=== PATIENT | male | born 1980 | race American Indian/Alaskan Native ===

== ENCOUNTER 2018-09-18 10:21 | Inpatient (IN) | payer MEDICAID, OTHER ==
[2018-09-18] MEDS ORDERED: NACL 0.9% 500 ML 500 ML IV ONE (10:35)
[2018-09-18] MEDS ORDERED: NACL 0.9% 1000 ML 1,000 ML IV ONE ×2 (10:48→13:42)
[2018-09-18] MEDS ORDERED: TYLENOL PO ONE (10:48)
--- NOTE | 2018-09-18 10:48 | Emergency Department Report ---
HPI - General Chief Complaint: Fever Time Seen by Provider: 09/18/18 10:43 - HPI HPI: 52-year-old [place] male presents to the emergency department from home using a [employer] complaint of a few days of fever, nausea/vomiting, cough, chest pain. It does not appear that the patient has taken anything for his symptoms prior to presentation. He admits to a history of HIV. He is a tobacco smoker but says he has not had any cigarettes in 5 days. He does not have a primary care physician. The patient says that he consistently travels back and between here in [facility] [place]. ED Past Medical Hx - Medications Home Medications: Home Medications Medication Instructions Recorded Confirmed Last Taken Type No Known Home Medications [No 09/18/18 09/18/18 Unknown History Reported Home Medications] ED Review of Systems ROS: Stated complaint: UNKNOWN ILLNESS Other details as noted in HPI Constitutional: chills, fever Eyes: denies: eye pain, vision change ENT: denies: ear pain, throat pain Respiratory: cough. denies: wheezing Cardiovascular: chest pain. denies: palpitations Gastrointestinal: nausea, vomiting Genitourinary: denies: dysuria, discharge Musculoskeletal: denies: back pain, arthralgia Skin: denies: rash, lesions Neurological: denies: headache Physical Exam - Physical Exam Vital Signs: Vital Signs 09/18/18 10:27 Temperature 103.1 F H Pulse Rate 136 H Respiratory 28 H Rate Blood Pressure 127/78 [Left] O2 Sat by Pulse 95 Oximetry Physical Exam: GENERAL: The patient is well-developed well-nourished. HENT: Normocephalic. Atraumatic. Patient has moist mucous membranes. EYES: Extraocular motions are intact. Pupils equal reactive to light bilaterally. NECK: Supple. Trachea is midline. CHEST/LUNGS: There is some rhonchi heard throughout the lungs. A productive Senokot. During examination. No tachypnea or accessory muscle use. There is no respiratory distress noted. HEART/CARDIOVASCULAR: Regular. There is moderate tachycardia. There is no murmur. ABDOMEN: Abdomen is soft, nontender. Patient has normal bowel sounds. There is no abdominal distention. SKIN: Skin is warm and dry. NEURO: The patient is awake, alert, and oriented. The patient is cooperative. The patient has no focal neurologic deficits. The patient has normal speech. MUSCULOSKELETAL: There is no tenderness or deformity. There is no evidence of acute injury. ED Course Vital Signs 09/18/18 10:27 Temperature 103.1 F H Pulse Rate 136 H Respiratory 28 H Rate Blood Pressure 127/78 [Left] O2 Sat by Pulse 95 Oximetry - EJ/Peripheral Line Arm R Time Out Performed: Yes Indications: nurses unable to establis Skin Cleansed in Sterile Fashion: Yes Size: 20 Dressing Placed: Tegaderm, tape Patient Tolerated Procedure: well Additional Comments: Ultrasound-guided ED Medical Decision Making - Lab Data Result diagrams: 09/18/18 10:35 09/18/18 10:35 - EKG Data -: EKG Interpreted by Me EKG shows normal: sinus rhythm, axis, intervals, QRS complexes (Carey to the septal leads), ST-T waves Rate: tachycardia (126 bpm) - EKG Data When compared to previous EKG there are: previous EKG unavailable Interpretation: other (sinus tachycardia, Q waves to the septal leads) - Radiology Data Radiology results: report reviewed, image reviewed interpreted by me: Chest x-ray does not show any acute process. There are no pleural effusions, obvious pneumonia and there is no pneumothorax. CT HEAD WITHOUT CONTRAST: HISTORY: Headache. TECHNIQUE: Sequential 2.5mm CT images. COMPARISON: none. FINDINGS: Cerebral Parenchyma: A chronic focal infarct in the right anterior basal ganglia measures 1.2 x 0.3 cm in axial plane. The remaining brain parenchyma demonstrates normal attenuation. The caraballo-white interface is well defined. Cerebellum: Within normal limits. Brainstem: Within normal limits. Ventricles: Normal. Sella: Normal. Extra-axial spaces: Normal. Basal Cisterns: Normal. Intracranial Hemorrhage: None. Midline Shift: None. Calvarium: Normal. Sinuses: Normal. Mastoid Air Cells: Normal. Visualized Orbits: Normal. IMPRESSION: No acute intracranial process. Chronic focal infarct in the right anterior basal ganglia. Transcribed By: TTR Dictated By: RAINER JOYA JR, MD Electronically Authenticated By: RAINER JOYA JR, MD Signed Date/Time: 09/18/18 1402 CTA CHEST: HISTORY: chest pain. COMPARISON: none. TECHNIQUE: Helical CT in 1.25mm intervals following IV contrast. Pulmonary embolus protocol. Sagittal and coronal reformatted images. Rotational MIP images. FINDINGS: Contrast bolus is satisfactory. No pulmonary embolus is identified. Thyroid gland: Normal. Tracheobronchial tree: Normal. Esophagus: Normal. Heart: Normal. Pericardium: Normal. Mediastinum: Normal. Lung Erwin: Patchy peribronchial infiltration is identified in both lower lobes, and to a lesser extent, the lingula and lower anterior right upper lobe. No evidence for consolidation or mass. There are a few tiny subpleural blebs in both upper lobes which could represent early paraseptal emphysematous changes. Pleural Spaces: Normal. Musculoskeletal: Normal. IMPRESSION: No evidence for pulmonary embolus. Nonspecific bilateral infiltrates concerning for an infectious process. Aspiration could be considered. Please correlate with the patient's clinical presentation. Transcribed By: TTR Dictated By: RAINER JOYA JR, MD Electronically Authenticated By: RAINER JOYA JR, MD Signed Date/Time: 09/18/18 7209 - Medical Decision Making Patient presents to the emergency department with a fever, cough, nausea and vomiting and some chest pain. EKG shows some tachycardia but otherwise does not show any signs of ST elevation CO. Chest x-ray did not show any acute process. The patient's labs are mostly unremarkable except for some mild hyponatremia and a elevated and equivocal d-dimer. The patient had a CT scan of the head secondary to the complaint of a headache but it did not show any bleed, shift, mass, acute ischemia, or any other acute process. He had a CT angiography of the chest done that does not show any signs of pulmonary embolism but has some bilateral infiltrates concerning for pneumonia. The patient was empirically treated, even prior to the CT results, with some Levaquin. With the finding of pneumonia, his fever and tachycardia, the patient is positive for sepsis. He will be admitted to the hospital for further evaluation and treatment was except for admission by the hospitalist, Dr. Soto. - Differential Diagnosis Sepsis, Pneumonia, UTI, AIDS Critical Care Time: Yes Critical care time in (mins) excluding proc time.: 35 Critical care attestation.: If time is entered above; I have spent that time in minutes in the direct care of this critically ill patient, excluding procedure time. Critical care time was spent on this patient during his initial evaluation, multiple re-evaluat ions, ordering and interpretation of labs and imaging, ordering and administration of medication. Critical Care Time: 35 minutes ED Disposition Clinical Impression: Sepsis Qualifiers: Sepsis type: sepsis due to unspecified organism Qualified Code(s): A41.9 - Sepsis, unspecified organism Pneumonia Qualifiers: Pneumonia type: due to unspecified organism Laterality: bilateral Lung location: unspecified part of lung Qualified Code(s): J18.9 - Pneumonia, unspecified organism HIV (human immunodeficiency virus infection) Qualifiers: HIV symptom status: unspecified Qualified Code(s): B20 - Human immunodeficiency virus [HIV] disease Disposition: 09 OP ADMIT IP TO THIS HOSP Is pt being admited?: Yes Condition: Serious Time of Disposition: 13:20
[2018-09-18 10:58] LABS: Basophils % (Auto) 0.1 % (0.0-1.8); Eosinophils # (Auto) 0.3 K/mm3 (0.0-0.4); Eosinophils % (Auto) 3.5 % (0.0-4.3); Hematocrit 42.9 % (35.5-45.6); Hemoglobin 14.5 gm/dl (11.8-15.2); Lymphocytes # (Auto) 0.3 K/mm3 (1.2-5.4); Lymphocytes % (Auto) 3.6 % (13.4-35.0); Mean Corpuscular HGB Conc 34 % (32-34); Mean Corpuscular Volume 76 fl (84-94); Monocytes # (Auto) 0.9 K/mm3 (0.0-0.8); Monocytes % (Auto) 11.3 % (0.0-7.3); Platelet Count 148 K/mm3 (140-440); Red Blood Count 5.61 M/mm3 (3.65-5.03); Red Cell Distribution Width 14.3 % (13.2-15.2)
--- NOTE | 2018-09-18 11:16 | XRay Report ---
AP CHEST: HISTORY: Sepsis, fever AP view of the chest demonstrates a normal mediastinal and cardiac contour with clear lungs and normal bony and soft tissue structures. IMPRESSION: Unremarkable AP chest.
[2018-09-18 11:17] LABS: Alanine Aminotransferase 56 units/L (7-56); Albumin 3.5 g/dL (3.9-5); BUN/Creatinine Ratio 35; Blood Urea Nitrogen 38 mg/dL (9-20); Calcium 8.9 mg/dL (8.4-10.2); Hemolysis Index 1
[2018-09-18] MEDS ORDERED: LEVAQUIN 750MG/150ML 750 MG/150 ML BAG IV ONE (11:17)
[2018-09-18] MEDS ORDERED: TORADOL IV ONE (11:17)
[2018-09-18 11:18] LABS: INR 0.91 (0.87-1.13)
[2018-09-18 11:19] LABS: Partial Thromboplastin Time 29.8 Sec. (24.2-36.6)
--- NOTE | 2018-09-18 14:13 | Cat Scan Report ---
CT HEAD WITHOUT CONTRAST: HISTORY: Headache. TECHNIQUE: Sequential 2.5mm CT images. COMPARISON: none. FINDINGS: Cerebral Parenchyma: A chronic focal infarct in the right anterior basal ganglia measures 1.2 x 0.3 cm in axial plane. The remaining brain parenchyma demonstrates normal attenuation. The caraballo-white interface is well defined. Cerebellum: Within normal limits. Brainstem: Within normal limits. Ventricles: Normal. Sella: Normal. Extra-axial spaces: Normal. Basal Cisterns: Normal. Intracranial Hemorrhage: None. Midline Shift: None. Calvarium: Normal. Sinuses: Normal. Mastoid Air Cells: Normal. Visualized Orbits: Normal. IMPRESSION: No acute intracranial process. Chronic focal infarct in the right anterior basal ganglia.
--- NOTE | 2018-09-18 14:25 | Cat Scan Report ---
CTA CHEST: HISTORY: chest pain. COMPARISON: none. TECHNIQUE: Helical CT in 1.25mm intervals following IV contrast. Pulmonary embolus protocol. Sagittal and coronal reformatted images. Rotational MIP images. FINDINGS: Contrast bolus is satisfactory. No pulmonary embolus is identified. Thyroid gland: Normal. Tracheobronchial tree: Normal. Esophagus: Normal. Heart: Normal. Pericardium: Normal. Mediastinum: Normal. Lung Erwin: Patchy peribronchial infiltration is identified in both lower lobes, and to a lesser extent, the lingula and lower anterior right upper lobe. No evidence for consolidation or mass. There are a few tiny subpleural blebs in both upper lobes which could represent early paraseptal emphysematous changes. Pleural Spaces: Normal. Musculoskeletal: Normal. IMPRESSION: No evidence for pulmonary embolus. Nonspecific bilateral infiltrates concerning for an infectious process. Aspiration could be considered. Please correlate with the patient's clinical presentation.
[2018-09-18] MEDS ORDERED: BACTRIM DS PO ONE (14:34)
[2018-09-18 15:34] LABS: Bilirubin,Urine NEG (Negative); Blood,Urine NEG (Negative); Color,Urine Yellow (Yellow); Mucus,Urine FEW /HPF; Urobilinogen,Urine < 2.0 mg/dL (<2.0)
[2018-09-18] MEDS ORDERED: BACTRIM DS ONE (15:36)
--- NOTE | 2018-09-18 17:37 | History and Physical Report ---
History of Present Illness Date of examination: 09/18/18 Date of admission: 09/18/18 14:32 Medications and Allergies Allergies Allergy/AdvReac Type Severity Reaction Status Date / Time Unable to Assess Allergy Verified 09/18/18 10:55 Home Medications Medication Instructions Recorded Confirmed Last Taken Type No Known Home Medications [No 09/18/18 09/18/18 Unknown History Reported Home Medications] Active Meds: Active Medications Pneumococcal Polyvalent Vaccine (Pneumovax 23) 0.5 ml IM .ONCE ONE Stop: 09/19/18 12:01 Exam - Constitutional Vitals: Temp Pulse Resp BP Pulse Ox 99 F 107 H 21 114/67 97 09/18/18 13:30 09/18/18 13:30 09/18/18 13:30 09/18/18 13:30 09/18/18 13:30 Results - Labs CBC & Chem 7: 09/18/18 10:35 09/18/18 10:35 Labs: Laboratory Last Values WBC 7.9 K/mm3 (4.5-11.0) 09/18/18 10:35 RBC 5.61 M/mm3 (3.65-5.03) H 09/18/18 10:35 Hgb 14.5 gm/dl (11.8-15.2) 09/18/18 10:35 Hct 42.9 % (35.5-45.6) 09/18/18 10:35 MCV 76 fl (84-94) L 09/18/18 10:35 MCH 26 pg (28-32) L 09/18/18 10:35 MCHC 34 % (32-34) 09/18/18 10:35 RDW 14.3 % (13.2-15.2) 09/18/18 10:35 Plt Count 148 K/mm3 (140-440) 09/18/18 10:35 Lymph % (Auto) 3.6 % (13.4-35.0) L 09/18/18 10:35 Archer % (Auto) 11.3 % (0.0-7.3) H 09/18/18 10:35 Eos % (Auto) 3.5 % (0.0-4.3) 09/18/18 10:35 Baso % (Auto) 0.1 % (0.0-1.8) 09/18/18 10:35 Lymph # 0.3 K/mm3 (1.2-5.4) L 09/18/18 10:35 Archer # 0.9 K/mm3 (0.0-0.8) H 09/18/18 10:35 Eos # 0.3 K/mm3 (0.0-0.4) 09/18/18 10:35 Baso # 0.0 K/mm3 (0.0-0.1) 09/18/18 10:35 Seg Neutrophils % 81.5 % (40.0-70.0) H 09/18/18 10:35 Seg Neutrophils # 6.4 K/mm3 (1.8-7.7) 09/18/18 10:35 PT 12.8 Sec. (12.2-14.9) 09/18/18 10:35 INR 0.91 (0.87-1.13) 09/18/18 10:35 APTT 29.8 Sec. (24.2-36.6) 09/18/18 10:35 326.74 ng/mlDDU (0-234) H 09/18/18 10:35 VBG pH 7.363 (7.320-7.420) 09/18/18 10:35 Sodium 130 mmol/L (137-145) L 09/18/18 10:35 Potassium 4.3 mmol/L (3.6-5.0) 09/18/18 10:35 Chloride 93.0 mmol/L (98-107) L 09/18/18 10:35 Carbon Dioxide 24 mmol/L (22-30) 09/18/18 10:35 17 mmol/L 09/18/18 10:35 BUN 38 mg/dL (9-20) H 09/18/18 10:35 1.1 mg/dL (0.8-1.5) 09/18/18 10:35 Estimated GFR > 60 ml/min 09/18/18 10:35 35 % 09/18/18 10:35 Glucose 91 mg/dL (75-100) 09/18/18 10:35 Lactic Acid 1.10 mmol/L (0.7-2.0) 09/18/18 15:20 Calcium 8.9 mg/dL (8.4-10.2) 09/18/18 10:35 0.20 mg/dL (0.1-1.2) 09/18/18 10:35 AST 52 units/L (5-40) H 09/18/18 10:35 ALT 56 units/L (7-56) 09/18/18 10:35 117 units/L (35-129) 09/18/18 10:35 < 0.010 ng/mL (0.00-0.029) 09/18/18 10:35 8.7 g/dL (6.3-8.2) H 09/18/18 10:35 3.5 g/dL (3.9-5) L 09/18/18 10:35 0.7 % 09/18/18 10:35 TSH 0.711 mlU/mL (0.270-4.200) 09/18/18 10:35 Yellow (Yellow) 09/18/18 14:55 Clear (Clear) 09/18/18 14:55 5.0 (5.0-7.0) 09/18/18 14:55 Ur Specific Lafe 1.025 (1.003-1.030) 09/18/18 14:55 30 mg/dl mg/dL (Negative) 09/18/18 14:55 Neg mg/dL (Negative) 09/18/18 14:55 Neg mg/dL (Negative) 09/18/18 14:55 Neg (Negative) 09/18/18 14:55 Neg (Negative) 09/18/18 14:55 Neg (Negative) 09/18/18 14:55 < 2.0 mg/dL (<2.0) 09/18/18 14:55 Ur Leukocyte Esterase Neg (Negative) 09/18/18 14:55 8.0 /HPF (0.0-6.0) H 09/18/18 14:55 1.0 /HPF (0.0-6.0) 09/18/18 14:55 U Epithel Cells (Auto) < 1.0 /HPF (0-13.0) 09/18/18 14:55 Few /HPF 09/18/18 14:55
[2018-09-18] MEDS ORDERED: IBUPROFEN PO PRN (18:19)
[2018-09-18] MEDS ORDERED: SODIUM CHLORIDE FLUSH SYRINGE 10 ML IV PRN (18:19)
[2018-09-18] MEDS ORDERED: ZOFRAN IV PRN (18:19)
[2018-09-18] MEDS: ZITHROMAX 500 MG in NACL 0.9% 250ML 250 ML IV SCH (20:25)
[2018-09-18] MEDS: NACL 0.9% 1000 ML 1,000 ML IV SCH (20:25)
[2018-09-18] MEDS: ROCEPHIN/NS 2 GM/100 ML 2 GM/100 ML BAG IV SCH (20:58)
[2018-09-18] MEDS ORDERED: DUONEB *Not for PRN Use IH (21:00)
[2018-09-18] MEDS: PEPCID PO SCH (21:45)
[2018-09-18] MEDS: SODIUM CHLORIDE FLUSH SYRINGE 10 ML IV SCH (21:45)
[2018-09-18] MEDS ORDERED: LOVENOX SUB-Q SCH (22:00)
[2018-09-19] MEDS: DILAUDID IV PRN (00:06)
[2018-09-19] MEDS: REGLAN IV PRN (00:06)
[2018-09-19] MEDS: TYLENOL PO PRN ×2 (02:02→06:04)
--- NOTE | 2018-09-19 06:06 | Event Note ---
Date: 09/18/18 See H/p in reports Bilateral Pneumonia HIV Fever 2 weeks
[2018-09-19] MEDS ORDERED: DUONEB *Not for PRN Use IH (06:16)
--- NOTE | 2018-09-19 07:19 | History and Physical Report ---
CHIEF COMPLAINT: 1. Fever for 2 weeks. 2. Cough for 2 weeks. 3. Nausea and occasional vomiting for the last 3-4 days. HISTORY OF PRESENT ILLNESS: A 38-year-old [place] male, poor historian, comes in for fever of 2 days' duration. Fever was intermittent and high grade fever. Temperature is going into 103 degrees Fahrenheit. No seizures. The patient also has been coughing mucoid sputum. The patient states he was diagnosed with HIV about 18 months ago and took HIV medications, antiretrovirals for about 10 month and stopped since April because of financial reasons. The patient also travels between [facility] and here frequently. Not taking any medications for HIV now. The patient also has some weight loss recently. No sequelae of HIV in the past. No seizures. PAST MEDICAL HISTORY: As mentioned, HIV. PAST SURGICAL HISTORY: None. SOCIAL HISTORY: Unclear whether he smokes. FAMILY HISTORY: Noncontributory. PHYSICAL EXAMINATION: GENERAL: Young male, cooperative during examination. VITAL SIGNS: Temperature is 103.6, pulse is 136, respiratory rate is 28, sats are 95%. HEENT: Unremarkable. Tongue slightly dry. NECK: Supple, no lymphadenopathy, no thyromegaly. LUNGS: Scattered rhonchi bilaterally. There was good air entry. CARDIOVASCULAR: S1, S2 heard. No gallop, no murmur, no rub. Apical impulse in left fifth intercostal space and midclavicular line. ABDOMEN: Soft and benign. No hepatosplenomegaly. No guarding, no rigidity. Hernial orifices are normal. EXTREMITIES: Good pedal pulses. No pedal edema. CENTRAL NERVOUS SYSTEM: Alert and oriented. Nonfocal exam. SKIN: Normal. LABORATORY DATA: Significant for white count of 7600, H and H of 14.5 and 42.9, platelet count of 14.3, protime is 12.8, PTT is 29.8. Sodium is 130, slightly low, BUN and creatinine is 38 and 1.1, potassium is 4.3. AST is 52, slightly high. Total protein is 8.7, albumin is 3.5. Urine shows 8 white blood cells. DIAGNOSTIC DATA: HIV rapid antibody test is reactive. HIV P24 antigen is nonreactive. CT report shows no evidence of pulmonary embolus. Nonspecific bilateral infiltrates concerning for infectious process. Aspiration could be considered. Please correlate with the patient's clinical presentation. Chest x-ray also shows bilateral infiltrates. Head CT was normal. No infarcts or any focal granulomatous disease. Chronic focal infarct in the right anterior basal ganglia. ASSESSMENT AND PLAN: 1. Bilateral pneumonia. Differential diagnosis of community-acquired pneumonia versus PCP. The patient is being treated as community-acquired pneumonia with ceftriaxone and azithromycin. We will request Infectious Disease regarding possibility of PCP. ID consult requested. Also, Alina p.r.n. Respiratory isolation done. 2. Human immunodeficiency virus. The patient is HIV reactive. Viral load pending. ID consult was requested. 3. Dehydration. The patient initiated on IV fluids. BUN and creatinine is 38 and 1.1. 4. Hyponatremia. IV normal saline for now. 5. Malnutrition, mild. Dietitian consult requested. 6. Transaminitis, mild. AST of 52. Hepatitis profile ordered. 7. Deep venous thrombosis prophylaxis, Lovenox 40 mg subcutaneous daily ordered. JOB# [id number] YONATHAN/LUZMARIA MONK
[2018-09-19 07:44] LABS: Hematocrit 34.7 % (35.5-45.6); Hemoglobin 11.7 gm/dl (11.8-15.2); Mean Corpuscular HGB Conc 34 % (32-34); Mean Corpuscular Volume 76 fl (84-94); Platelet Count 139 K/mm3 (140-440); Red Blood Count 4.58 M/mm3 (3.65-5.03); Red Cell Distribution Width 14.4 % (13.2-15.2)
[2018-09-19 07:54] LABS: Alanine Aminotransferase 31 units/L (7-56); Albumin 2.7 g/dL (3.9-5); BUN/Creatinine Ratio 21; Blood Urea Nitrogen 25 mg/dL (9-20); Hemolysis Index 8
[2018-09-19 08:49] LABS: Band Neutrophils # (Manual) 0.3 K/mm3; Basophils % (Manual) 0 % (0.0-1.8); Eosinophils % (Manual) 0 % (0.0-4.3); Total Cells Counted 100
[2018-09-19 08:50] LABS: Giant Platelets Rare; Ovalocytes Few; Platelet Estimate Consistent w Auto
--- NOTE | 2018-09-19 08:54 | Progress Note ---
History Interval history: Patient was seen and examined. Follow-up on current diagnosis. Overnight uneventful. Patient denies any chest pain, shortness breath, nausea/vomiting or severe headaches. Imaging, nursing note, chart, labs and old chart reviewed. Discussed with patient. Gen: WDWN, NAD, Awake, Alert, Orientated HEENT: NCAT, EOMI, PERRL, OP Clear Neck: supple, no adenopathy, no thyromegaly, no JVD CVS/Heart: RRR, normal S1S2, pulses present bilaterally Chest/Lungs: CTA B, Symmetrical chest expansion, good air entry bilaterally GI/Abdomen: soft, NTND, good bowel sounds, no guarding or rebound /Bladder: no suprapubic tenderness, no CVA or paraspinal tenderness Extermity/Skin: no c/c/e, no obvious rash MSK: FROM x 4 Neuro: CN 2-12 grossly intact, no new focal deficits Psych: calm CTA Impression: No PE, nonspecific bilateral infiltrates [lower lobes] concerning for an Infectious process Hospitalist Physical - Constitutional Vitals: Temp Pulse Resp BP Pulse Ox 101.7 F H 106 H 16 109/59 97 09/19/18 05:28 09/19/18 05:28 09/19/18 05:28 09/19/18 05:28 09/19/18 05:28 Results - Labs CBC & Chem 7: 09/19/18 Unknown 09/19/18 Unknown Labs: Laboratory Last Values WBC 6.6 K/mm3 (4.5-11.0) 09/19/18 Unknown RBC 4.58 M/mm3 (3.65-5.03) 09/19/18 Unknown Hgb 11.7 gm/dl (11.8-15.2) L 09/19/18 Unknown Hct 34.7 % (35.5-45.6) L D 09/19/18 Unknown MCV 76 fl (84-94) L 09/19/18 Unknown MCH 26 pg (28-32) L 09/19/18 Unknown MCHC 34 % (32-34) 09/19/18 Unknown RDW 14.4 % (13.2-15.2) 09/19/18 Unknown Plt Count 139 K/mm3 (140-440) L 09/19/18 Unknown Lymph % (Auto) 3.6 % (13.4-35.0) L 09/18/18 10:35 [place] % (Auto) 11.3 % (0.0-7.3) H 09/18/18 10:35 Eos % (Auto) 3.5 % (0.0-4.3) 09/18/18 10:35 Baso % (Auto) 0.1 % (0.0-1.8) 09/18/18 10:35 Lymph # 0.3 K/mm3 (1.2-5.4) L 09/18/18 10:35 [place] # 0.9 K/mm3 (0.0-0.8) H 09/18/18 10:35 Eos # 0.3 K/mm3 (0.0-0.4) 09/18/18 10:35 Baso # 0.0 K/mm3 (0.0-0.1) 09/18/18 10:35 Add Manual Diff Complete 09/19/18 Unknown Total Counted 100 09/19/18 Unknown Seg Neutrophils % [employer] 09/19/18 Unknown Seg Neuts % (Manual) 92.0 % (40.0-70.0) H 09/19/18 Unknown 5.0 % 09/19/18 Unknown 0 % (13.4-35.0) L 09/19/18 Unknown Reactive Lymphs % (Man) 0 % 09/19/18 Unknown 3.0 % (0.0-7.3) 09/19/18 Unknown 0 % (0.0-4.3) 09/19/18 Unknown 0 % (0.0-1.8) 09/19/18 Unknown 0 % 09/19/18 Unknown 0 % 09/19/18 Unknown 0 % 09/19/18 Unknown 0 % 09/19/18 Unknown Nucleated RBC % Not Reportable 09/19/18 Unknown Seg Neutrophils # 6.4 K/mm3 (1.8-7.7) 09/18/18 10:35 Seg Neutrophils # Man 6.1 K/mm3 (1.8-7.7) 09/19/18 Unknown Band Neutrophils # 0.3 K/mm3 09/19/18 Unknown 0.0 K/mm3 (1.2-5.4) L 09/19/18 Unknown Abs React Lymphs (Man) 0.0 K/mm3 09/19/18 Unknown 0.2 K/mm3 (0.0-0.8) 09/19/18 Unknown 0.0 K/mm3 (0.0-0.4) 09/19/18 Unknown 0.0 K/mm3 (0.0-0.1) 09/19/18 Unknown 0.0 K/mm3 09/19/18 Unknown 0.0 K/mm3 09/19/18 Unknown 0.0 K/mm3 09/19/18 Unknown Blast Cells # 0.0 K/mm3 09/19/18 Unknown WBC Morphology Not Reportable 09/19/18 Unknown Hypersegmented Neuts Not Reportable 09/19/18 Unknown Hyposegmented Neuts Not Reportable 09/19/18 Unknown Hypogranular Neuts Not Reportable 09/19/18 Unknown Not Reportable 09/19/18 Unknown Not Reportable 09/19/18 Unknown Not Reportable 09/19/18 Unknown Not Reportable 09/19/18 Unknown Not Reportable 09/19/18 Unknown Not Reportable 09/19/18 Unknown Consistent w auto 09/19/18 Unknown Not Reportable 09/19/18 Unknown Plt Clumps, EDTA Not Reportable 09/19/18 Unknown Not Reportable 09/19/18 Unknown Rare 09/19/18 Unknown Not Reportable 09/19/18 Unknown Plt Morphology Comment Not Reportable 09/19/18 Unknown RBC Morphology Not Reportable 09/19/18 Unknown Dimorphic RBCs Not Reportable 09/19/18 Unknown Not Reportable 09/19/18 Unknown Not Reportable 09/19/18 Unknown Not Reportable 09/19/18 Unknown Not Reportable 09/19/18 Unknown Not Reportable 09/19/18 Unknown Not Reportable 09/19/18 Unknown Not Reportable 09/19/18 Unknown Not Reportable 09/19/18 Unknown Not Reportable 09/19/18 Unknown Not Reportable 09/19/18 Unknown Not Reportable 09/19/18 Unknown Few 09/19/18 Unknown Not Reportable 09/19/18 Unknown Not Reportable 09/19/18 Unknown Not Reportable 09/19/18 Unknown Not Reportable 09/19/18 Unknown Not Reportable 09/19/18 Unknown Not Reportable 09/19/18 Unknown Not Reportable 09/19/18 Unknown Acanthocytes (Spur) Not Reportable 09/19/18 Unknown Rouleaux Not Reportable 09/19/18 Unknown Not Reportable 09/19/18 Unknown Not Reportable 09/19/18 Unknown Not Reportable 09/19/18 Unknown Not Reportable 09/19/18 Unknown Hem Pathologist Commnt No 09/19/18 Unknown PT 12.8 Sec. (12.2-14.9) 09/18/18 10:35 INR 0.91 (0.87-1.13) 09/18/18 10:35 APTT 29.8 Sec. (24.2-36.6) 09/18/18 10:35 326.74 ng/mlDDU (0-234) H 09/18/18 10:35 VBG pH 7.363 (7.320-7.420) 09/18/18 10:35 Sodium 135 mmol/L (137-145) L 09/19/18 Unknown Potassium 4.1 mmol/L (3.6-5.0) 09/19/18 Unknown Chloride 103.2 mmol/L (98-107) 09/19/18 Unknown Carbon Dioxide 18 mmol/L (22-30) L 09/19/18 Unknown 18 mmol/L 09/19/18 Unknown BUN 25 mg/dL (9-20) H 09/19/18 Unknown 1.2 mg/dL (0.8-1.5) 09/19/18 Unknown Estimated GFR > 60 ml/min 09/19/18 Unknown 21 % 09/19/18 Unknown Glucose 84 mg/dL (75-100) 09/19/18 Unknown 5.7 % (4-6) 09/18/18 20:01 Lactic Acid 1.10 mmol/L (0.7-2.0) 09/18/18 15:20 Calcium 8.0 mg/dL (8.4-10.2) L 09/19/18 Unknown 0.30 mg/dL (0.1-1.2) 09/19/18 Unknown AST 31 units/L (5-40) 09/19/18 Unknown ALT 31 units/L (7-56) 09/19/18 Unknown 96 units/L (35-129) 09/19/18 Unknown < 0.010 ng/mL (0.00-0.029) 09/18/18 10:35 7.0 g/dL (6.3-8.2) 09/19/18 Unknown 2.7 g/dL (3.9-5) L 09/19/18 Unknown 0.6 % 09/19/18 Unknown TSH 0.711 mlU/mL (0.270-4.200) 09/18/18 10:35 Yellow (Yellow) 09/18/18 14:55 Clear (Clear) 09/18/18 14:55 5.0 (5.0-7.0) 09/18/18 14:55 Ur Specific [place] 1.025 (1.003-1.030) 09/18/18 14:55 30 mg/dl mg/dL (Negative) 09/18/18 14:55 Neg mg/dL (Negative) 09/18/18 14:55 Neg mg/dL (Negative) 09/18/18 14:55 Neg (Negative) 09/18/18 14:55 Neg (Negative) 09/18/18 14:55 Neg (Negative) 09/18/18 14:55 < 2.0 mg/dL (<2.0) 09/18/18 14:55 Ur Leukocyte Esterase Neg (Negative) 09/18/18 14:55 8.0 /HPF (0.0-6.0) H 09/18/18 14:55 1.0 /HPF (0.0-6.0) 09/18/18 14:55 U Epithel Cells (Auto) < 1.0 /HPF (0-13.0) 09/18/18 14:55 Few /HPF 09/18/18 14:55 HIV 1&2 Antibody Rapid Reactive (Non React) 09/18/18 20:01 Non react (Non React) 09/18/18 20:01 Active Medications - Current Medications Current Medications: Generic Name Dose Route Start Last Admin Trade Name Freq PRN Reason Stop Dose Admin Acetaminophen 650 mg 09/18/18 18:19 09/19/18 06:04 Tylenol PO 650 mg Q4H PRN Administration Pain MILD(1-3)/Fever >100.5/LANDAVERDE Albuterol/Ipratropium 1 ampul 09/18/18 21:00 Duoneb *Not For Prn Use* IH Q3H PRN Wheezing Famotidine 20 mg 09/18/18 22:00 09/18/18 21:45 Pepcid PO 20 mg BID LEIGH Administration Guaifenesin 10 ml 09/19/18 01:51 09/19/18 03:11 Guaifenesin Dm Syrup PO 10 ml Q4H PRN Administration Cough Hydromorphone HCl 0.5 mg 09/18/18 18:19 09/19/18 00:06 Dilaudid IV 0.5 mg Q3H PRN Administration Pain , Severe (7-10) Sodium Chloride 1,000 mls @ 75 mls/hr 09/18/18 19:00 09/18/18 20:25 Nacl 0.9% 1000 Ml IV 09/19/18 12:00 75 mls/hr DIRECT LEIGH Administration Ceftriaxone Sodium 2 gm in 100 mls @ 200 mls/hr 09/18/18 19:00 09/18/18 20:58 Rocephin/Ns 2 Gm/100 Ml IV 200 mls/hr Q24HR LEIGH Administration Protocol Azithromycin 500 mg/ Sodium 250 mls @ 250 mls/hr 09/18/18 19:00 09/18/18 20:25 Chloride IV 250 mls/hr Q24HR LEIGH Administration Ibuprofen 600 mg 09/18/18 18:19 Ibuprofen PO Q6H PRN Pain, Mild (1-3) Metoclopramide HCl 10 mg 09/18/18 18:19 09/19/18 00:06 Reglan IV 10 mg Q6H PRN Administration Nausea And Vomiting Ondansetron HCl 4 mg 09/18/18 18:19 Zofran IV Q8H PRN Nausea And Vomiting Pneumococcal Polyvalent Vaccine 0.5 ml 09/19/18 12:00 Pneumovax 23 IM 09/19/18 12:01 .ONCE ONE Sodium Chloride 10 ml 09/18/18 22:00 09/18/18 21:45 Sodium Chloride Flush Syringe 10 Ml IV 10 ml BID LEIGH Administration Sodium Chloride 10 ml 09/18/18 18:19 Sodium Chloride Flush Syringe 10 Ml IV PRN PRN LINE FLUSH
[2018-09-19 10:39] LABS: Hepatitis B Surface Antigen Non-Reactive (Negative); Hepatitis C Virus Antibody Non-Reactive (NonReactive)
[2018-09-19] MEDS: ROCEPHIN/NS 2 GM/100 ML 2 GM/100 ML BAG IV SCH (10:45)
[2018-09-19] MEDS: PEPCID PO SCH ×2 (10:45→21:18)
[2018-09-19] MEDS: SODIUM CHLORIDE FLUSH SYRINGE 10 ML IV SCH ×2 (10:50→21:19)
[2018-09-19] MEDS: NACL 0.9% 1000 ML 1,000 ML IV SCH (11:56)
[2018-09-19] MEDS ORDERED: PNEUMOVAX 23 IM ONE (12:00)
[2018-09-19] MEDS ORDERED: AFLURIA QUAD 2018-2019 SYRINGE IM ONE (12:00)
[2018-09-19] MEDS: ZITHROMAX 500 MG in NACL 0.9% 250ML 250 ML IV SCH (12:55)
--- NOTE | 2018-09-19 12:57 | Consultation ---
History of Present Illness - Reason for Consult Consult date: 09/19/18 HIV, pneumonia Requesting physician: GILDARDO BARNETT - History of Present Illness The patient is a 38-year-old male originally from [place], diagnosed with HIV in 2016, risk factor is heterosexual contact presented to the emergency room yesterday with complaints of worsening cough over the last 2 weeks along with shortness of breath. This was also associated with high fevers. Patient has been coughing out sputum mixed with blood, at times brownish colored. CT and chest x- ray on admission showed findings concerning for bilateral pneumonia. He was started empirically on ceftriaxone, azithromycin. Infectious diseases was consulted. The patient took HIV medications for less than a year and then could not afford the medications. He used to follow up with the HIV clinic at [place], however, apparently they needed him to get a Social Security number before his medications could be continued. Denies any urinary burning. Positive for weight loss. Currently living in a motel. Review of Systems: General: + fever, chills and cough HEENT: no new visual disturbance Respiratory: + for cough, sputum, hemoptysis and shortness of breath Cardiovascular: No chest pain, syncope Gastrointestinal: No nausea, vomiting or diarrhea Genitourinary: No dysuria or hematuria Musculoskeletal: No new or worsening neck pain or back pain Neurologic: No headaches, seizures Hematologic: No easy bruising or bleeding Endocrine: No night sweats + for acute weight loss Skin: negative for rash, jaundice Psychiatric: No suicidal or homicidal ideation Medications and Allergies Allergies Allergy/AdvReac Type Severity Reaction Status Date / Time No Known Allergies Allergy Unverified 09/19/18 12:48 Home Medications Medication Instructions Recorded Confirmed Last Taken Type No Known Home Medications [No 09/18/18 09/18/18 Unknown History Reported Home Medications] Active Meds: Active Medications Acetaminophen (Tylenol) 650 mg PO Q4H PRN PRN Reason: Pain MILD(1-3)/Fever >100.5/LANDAVERDE Last Admin: 09/19/18 06:04 Dose: 650 mg Documented by: Albuterol/Ipratropium (Duoneb *Not For Prn Use*) 1 ampul IH Q3H PRN PRN Reason: Wheezing Famotidine (Pepcid) 20 mg PO BID LEIGH Last Admin: 09/19/18 10:45 Dose: 20 mg Documented by: Guaifenesin (Guaifenesin Dm Syrup) 10 ml PO Q4H PRN PRN Reason: Cough Last Admin: 09/19/18 03:11 Dose: 10 ml Documented by: Hydromorphone HCl (Dilaudid) 0.5 mg IV Q3H PRN PRN Reason: Pain , Severe (7-10) Last Admin: 09/19/18 00:06 Dose: 0.5 mg Documented by: Ceftriaxone Sodium (Rocephin/Ns 2 Gm/100 Ml) 2 gm in 100 mls @ 200 mls/hr IV Q24HR [facility]; Protocol Last Admin: 09/19/18 10:45 Dose: 200 mls/hr Documented by: Azithromycin 500 mg/ Sodium (Chloride) 250 mls @ 250 mls/hr IV Q24HR [facility] Last Admin: 09/18/18 20:25 Dose: 250 mls/hr Documented by: Ibuprofen (Ibuprofen) 600 mg PO Q6H PRN PRN Reason: Pain, Mild (1-3) Metoclopramide HCl (Reglan) 10 mg IV Q6H PRN PRN Reason: Nausea And Vomiting Last Admin: 09/19/18 00:06 Dose: 10 mg Documented by: Ondansetron HCl (Zofran) 4 mg IV Q8H PRN PRN Reason: Nausea And Vomiting Sodium Chloride (Sodium Chloride Flush Syringe 10 Ml) 10 ml IV BID [facility] Last Admin: 09/19/18 10:50 Dose: Not Given Documented by: Sodium Chloride (Sodium Chloride Flush Syringe 10 Ml) 10 ml IV PRN PRN PRN Reason: LINE FLUSH Physical Examination - Physical Exam Narrative exam: Physical Exam: Constitutional: Alert, cooperative. No acute distress Head, Ears, Nose: Normocephalic, atraumatic. External ears, nose normal Eyes: Conjunctivae/corneas clear. No icterus. No ptosis. Neck: Supple, no meningeal signs Oral: dentition fair, no thrush Cardiovascular: S1, S2 normal. Respiratory: bilateral basal crackles GI: Soft, non-tender; bowel sounds normal. No peritoneal signs Musculoskeletal: No pedal edema, no cyanosis. Skin: No rash or abscess Hem/Lymphatic: No palpable cervical or supraclavicular nodes. No lymphangitis Psych: Mood ok. Affect normal Neurological: Awake, alert, oriented. No gross abnormality - Constitutional Vitals: Vital Signs Temp Pulse Resp BP Pulse Ox 101.7 F H 106 H 16 109/59 97 09/19/18 05:28 09/19/18 05:28 09/19/18 05:28 09/19/18 05:28 09/19/18 05:28 Temperature -Last 24 Hours Temperature 101.7 F Temperature 100.1 F Temperature 98.6 F Temperature 99 F Results - Labs CBC & Chem 7: 09/19/18 Unknown 09/19/18 Unknown Labs: Abnormal lab results 09/18/18 09/19/18 09/19/18 Range/Units 14:55 Unknown Unknown Hgb 11.7 L (11.8-15.2) gm/dl Hct 34.7 L D (35.5-45.6) % MCV 76 L (84-94) fl MCH 26 L (28-32) pg Plt Count 139 L (140-440) K/mm3 Seg Neuts % (Manual) 92.0 H (40.0-70.0) % Lymphocytes % (Manual) 0 L (13.4-35.0) % Lymphocytes # (Manual) 0.0 L (1.2-5.4) K/mm3 Sodium 135 L (137-145) mmol/L Carbon Dioxide 18 L (22-30) mmol/L BUN 25 H (9-20) mg/dL Calcium 8.0 L (8.4-10.2) mg/dL Albumin 2.7 L (3.9-5) g/dL Urine WBC (Auto) 8.0 H (0.0-6.0) /HPF - Imaging and Cardiology CT scan - chest: report reviewed, image reviewed (bilateral airspace disease) Assessment and Plan Cultures: 09/18/2018 blood culture: No growth 09/18/2018 urine culture: No growth 09/19/2018 sputum culture: Contaminated with saliva A/P: 38-year-old male originally from [place], diagnosed with HIV in 2016, risk factor is heterosexual contact. Admitted with 2 week history of fever and cough: 1) Sepsis, likely secondary to bilateral pneumonia: In the setting of HIV, patient originally from [place]. On CT imaging, there is a little bit of miliary type pattern in the lung bases. Agree with airborne isolation, need to rule out community-acquired pneumonia versus TB versus PCP pneumonia. 2) HIV, likely AIDS: Noncompliant with medications. Labs suggestive of absolute lymphopenia. Recs: Continue ceftriaxone and azithromycin for now empiric IV Bactrim ordered Sputum culture ordered Airborne isolation AFB sputum's and smear 3 Serum cryptococcal antigen ordered Sputum ordered for PCP DFA HIV viral load, CD4 lymphocyte count ordered LDH ordered Will follow. Jose Godinez MD [facility] C: [phone] O: [phone] F: [phone]
[2018-09-19] MEDS ORDERED: BACTRIM 350 MG in D5W 500 ML IV SCH (14:30)
--- NOTE | 2018-09-19 15:17 | Progress Note ---
Assessment and Plan Assessment and plan: Patient is 38 yo man originally from [facility], [facility] [place] with a history of HIV who presented with sob, fevers and cough. * CTA Impression: No PE, nonspecific bilateral infiltrates [lower lobes] concerning for an Infectious process Sepsis due to bilateral pneumonia, r/o miliary type TB: continue iv ABX, ID consulted, r/o TB HIV, likely AIDS: ID consulted Malnutrition, mild: consult [employer] Hyponatremia, dehydration: iv fluid, monitor closely Mild transaminitis: follow up hepatitis panel DVT ppx reviewed History Interval history: Patient was seen and examined. Follow-up on current diagnosis PNA. Overnight uneventful. Patient denies any chest pain, shortness breath, nausea/vomiting or severe headaches. Imaging, nursing note, chart, labs and old chart reviewed. Discussed with patient. Hospitalist Physical - Physical exam Narrative exam: Gen: thin, WDWN, NAD, Awake, Alert, Orientated HEENT: NCAT, EOMI, PERRL, OP Clear Neck: supple, no thyromegaly, no JVD CVS/Heart: RRR, normal S1S2, pulses present bilaterally Chest/Lungs: bilateral crackles and coarse bs bilaterally, Symmetrical chest expansion, good air entry bilaterally GI/Abdomen: soft, NTND, good bowel sounds, no guarding or rebound /Bladder: no suprapubic tenderness, no CVA or paraspinal tenderness Extermity/Skin: no c/c/e, no obvious rash MSK: FROM x 4 Neuro: CN 2-12 grossly intact, no new focal deficits Psych: calm - Constitutional Vitals: Temp Pulse Resp BP Pulse Ox 99.9 F H 103 H 24 112/69 99 09/19/18 12:24 09/19/18 12:24 09/19/18 12:24 09/19/18 12:24 09/19/18 12:24 Results - Labs CBC & Chem 7: 09/19/18 Unknown 09/19/18 Unknown Labs: Laboratory Last Values WBC 6.6 K/mm3 (4.5-11.0) 09/19/18 Unknown RBC 4.58 M/mm3 (3.65-5.03) 09/19/18 Unknown Hgb 11.7 gm/dl (11.8-15.2) L 09/19/18 Unknown Hct 34.7 % (35.5-45.6) L D 09/19/18 Unknown MCV 76 fl (84-94) L 09/19/18 Unknown MCH 26 pg (28-32) L 09/19/18 Unknown MCHC 34 % (32-34) 09/19/18 Unknown RDW 14.4 % (13.2-15.2) 09/19/18 Unknown Plt Count 139 K/mm3 (140-440) L 09/19/18 Unknown Lymph % (Auto) 3.6 % (13.4-35.0) L 09/18/18 10:35 [place] % (Auto) 11.3 % (0.0-7.3) H 09/18/18 10:35 Eos % (Auto) 3.5 % (0.0-4.3) 09/18/18 10:35 Baso % (Auto) 0.1 % (0.0-1.8) 09/18/18 10:35 Lymph # 0.3 K/mm3 (1.2-5.4) L 09/18/18 10:35 [place] # 0.9 K/mm3 (0.0-0.8) H 09/18/18 10:35 Eos # 0.3 K/mm3 (0.0-0.4) 09/18/18 10:35 Baso # 0.0 K/mm3 (0.0-0.1) 09/18/18 10:35 Add Manual Diff Complete 09/19/18 Unknown Total Counted 100 09/19/18 Unknown Seg Neutrophils % [employer] Supervisor 09/19/18 Unknown Seg Neuts % (Manual) 92.0 % (40.0-70.0) H 09/19/18 Unknown 5.0 % 09/19/18 Unknown 0 % (13.4-35.0) L 09/19/18 Unknown Reactive Lymphs % (Man) 0 % 09/19/18 Unknown 3.0 % (0.0-7.3) 09/19/18 Unknown 0 % (0.0-4.3) 09/19/18 Unknown 0 % (0.0-1.8) 09/19/18 Unknown 0 % 09/19/18 Unknown 0 % 09/19/18 Unknown 0 % 09/19/18 Unknown 0 % 09/19/18 Unknown Nucleated RBC % Not Reportable 09/19/18 Unknown Seg Neutrophils # 6.4 K/mm3 (1.8-7.7) 09/18/18 10:35 Seg Neutrophils # Man 6.1 K/mm3 (1.8-7.7) 09/19/18 Unknown Band Neutrophils # 0.3 K/mm3 09/19/18 Unknown 0.0 K/mm3 (1.2-5.4) L 09/19/18 Unknown Abs React Lymphs (Man) 0.0 K/mm3 09/19/18 Unknown 0.2 K/mm3 (0.0-0.8) 09/19/18 Unknown 0.0 K/mm3 (0.0-0.4) 09/19/18 Unknown 0.0 K/mm3 (0.0-0.1) 09/19/18 Unknown 0.0 K/mm3 09/19/18 Unknown 0.0 K/mm3 09/19/18 Unknown 0.0 K/mm3 09/19/18 Unknown Blast Cells # 0.0 K/mm3 09/19/18 Unknown WBC Morphology Not Reportable 09/19/18 Unknown Hypersegmented Neuts Not Reportable 09/19/18 Unknown Hyposegmented Neuts Not Reportable 09/19/18 Unknown Hypogranular Neuts Not Reportable 09/19/18 Unknown Not Reportable 09/19/18 Unknown Not Reportable 09/19/18 Unknown Not Reportable 09/19/18 Unknown Not Reportable 09/19/18 Unknown Not Reportable 09/19/18 Unknown Not Reportable 09/19/18 Unknown Consistent w auto 09/19/18 Unknown Not Reportable 09/19/18 Unknown Plt Clumps, EDTA Not Reportable 09/19/18 Unknown Not Reportable 09/19/18 Unknown Rare 09/19/18 Unknown Not Reportable 09/19/18 Unknown Plt Morphology Comment Not Reportable 09/19/18 Unknown RBC Morphology Not Reportable 09/19/18 Unknown Dimorphic RBCs Not Reportable 09/19/18 Unknown Not Reportable 09/19/18 Unknown Not Reportable 09/19/18 Unknown Not Reportable 09/19/18 Unknown Not Reportable 09/19/18 Unknown Not Reportable 09/19/18 Unknown Not Reportable 09/19/18 Unknown Not Reportable 09/19/18 Unknown Not Reportable 09/19/18 Unknown Not Reportable 09/19/18 Unknown Not Reportable 09/19/18 Unknown Not Reportable 09/19/18 Unknown Few 09/19/18 Unknown Not Reportable 09/19/18 Unknown Not Reportable 09/19/18 Unknown Not Reportable 09/19/18 Unknown Not Reportable 09/19/18 Unknown Not Reportable 09/19/18 Unknown Not Reportable 09/19/18 Unknown Not Reportable 09/19/18 Unknown Acanthocytes (Spur) Not Reportable 09/19/18 Unknown Rouleaux Not Reportable 09/19/18 Unknown Not Reportable 09/19/18 Unknown Not Reportable 09/19/18 Unknown Not Reportable 09/19/18 Unknown Not Reportable 09/19/18 Unknown Hem Pathologist Commnt No 09/19/18 Unknown PT 12.8 Sec. (12.2-14.9) 09/18/18 10:35 INR 0.91 (0.87-1.13) 09/18/18 10:35 APTT 29.8 Sec. (24.2-36.6) 09/18/18 10:35 326.74 ng/mlDDU (0-234) H 09/18/18 10:35 VBG pH 7.363 (7.320-7.420) 09/18/18 10:35 Sodium 135 mmol/L (137-145) L 09/19/18 Unknown Potassium 4.1 mmol/L (3.6-5.0) 09/19/18 Unknown Chloride 103.2 mmol/L (98-107) 09/19/18 Unknown Carbon Dioxide 18 mmol/L (22-30) L 09/19/18 Unknown 18 mmol/L 09/19/18 Unknown BUN 25 mg/dL (9-20) H 09/19/18 Unknown 1.2 mg/dL (0.8-1.5) 09/19/18 Unknown Estimated GFR > 60 ml/min 09/19/18 Unknown 21 % 09/19/18 Unknown Glucose 84 mg/dL (75-100) 09/19/18 Unknown 5.7 % (4-6) 09/18/18 20:01 Lactic Acid 1.10 mmol/L (0.7-2.0) 09/18/18 15:20 Calcium 8.0 mg/dL (8.4-10.2) L 09/19/18 Unknown 0.30 mg/dL (0.1-1.2) 09/19/18 Unknown AST 31 units/L (5-40) 09/19/18 Unknown ALT 31 units/L (7-56) 09/19/18 Unknown 96 units/L (35-129) 09/19/18 Unknown 211 units/L (91-180) H 09/19/18 Unknown < 0.010 ng/mL (0.00-0.029) 09/18/18 10:35 7.0 g/dL (6.3-8.2) 09/19/18 Unknown 2.7 g/dL (3.9-5) L 09/19/18 Unknown 0.6 % 09/19/18 Unknown TSH 0.711 mlU/mL (0.270-4.200) 09/18/18 10:35 Yellow (Yellow) 09/18/18 14:55 Clear (Clear) 09/18/18 14:55 5.0 (5.0-7.0) 09/18/18 14:55 Ur Specific [place] 1.025 (1.003-1.030) 09/18/18 14:55 30 mg/dl mg/dL (Negative) 09/18/18 14:55 Neg mg/dL (Negative) 09/18/18 14:55 Neg mg/dL (Negative) 09/18/18 14:55 Neg (Negative) 09/18/18 14:55 Neg (Negative) 09/18/18 14:55 Neg (Negative) 09/18/18 14:55 < 2.0 mg/dL (<2.0) 09/18/18 14:55 Ur Leukocyte Esterase Neg (Negative) 09/18/18 14:55 8.0 /HPF (0.0-6.0) H 09/18/18 14:55 1.0 /HPF (0.0-6.0) 09/18/18 14:55 U Epithel Cells (Auto) < 1.0 /HPF (0-13.0) 09/18/18 14:55 Few /HPF 09/18/18 14:55 Hepatitis A IgM Ab Non-reactive (NonReactive) 09/19/18 Unknown Hep Bs Antigen Non-reactive (Negative) 09/19/18 Unknown Hep B Core IgM Ab Non-reactive (NonReactive) 09/19/18 Unknown Non-reactive (NonReactive) 09/19/18 Unknown HIV 1&2 Antibody Rapid Reactive (Non React) 09/18/18 20:01 Non react (Non React) 09/18/18 20:01 Active Medications - Current Medications Current Medications: Generic Name Dose Route Start Last Admin Trade Name Freq PRN Reason Stop Dose Admin Acetaminophen 650 mg 09/18/18 18:19 09/19/18 06:04 Tylenol PO 650 mg Q4H PRN Administration Pain MILD(1-3)/Fever >100.5/LANDAVERDE Albuterol/Ipratropium 1 ampul 09/18/18 21:00 Duoneb *Not For Prn Use* IH Q3H PRN Wheezing Famotidine 20 mg 09/18/18 22:00 09/19/18 10:45 Pepcid PO 20 mg BID LEIGH Administration Guaifenesin 10 ml 09/19/18 01:51 09/19/18 03:11 Guaifenesin Dm Syrup PO 10 ml Q4H PRN Administration Cough Hydromorphone HCl 0.5 mg 09/18/18 18:19 09/19/18 00:06 Dilaudid IV 0.5 mg Q3H PRN Administration Pain , Severe (7-10) Ceftriaxone Sodium 2 gm in 100 mls @ 200 mls/hr 09/18/18 19:00 09/19/18 10:45 Rocephin/Ns 2 Gm/100 Ml IV 200 mls/hr Q24HR LEIGH Administration Protocol Azithromycin 500 mg/ Sodium 250 mls @ 250 mls/hr 09/18/18 19:00 09/19/18 12:55 Chloride IV 250 mls/hr Q24HR LEIGH Administration Trimethoprim/Sulfamethoxazole 521.875 mls @ 350 mls/hr 09/19/18 14:30 350 mg/ Dextrose IV Q8HR LEIGH Protocol Ibuprofen 600 mg 09/18/18 18:19 Ibuprofen PO Q6H PRN Pain, Mild (1-3) Metoclopramide HCl 10 mg 09/18/18 18:19 09/19/18 00:06 Reglan IV 10 mg Q6H PRN Administration Nausea And Vomiting Ondansetron HCl 4 mg 09/18/18 18:19 Zofran IV Q8H PRN Nausea And Vomiting Sodium Chloride 10 ml 09/18/18 22:00 09/19/18 10:50 Sodium Chloride Flush Syringe 10 Ml IV Not Given BID LEIGH Sodium Chloride 10 ml 09/18/18 18:19 Sodium Chloride Flush Syringe 10 Ml IV PRN PRN LINE FLUSH
[2018-09-20] MEDS: BACTRIM 350 MG in D5W 500 ML IV SCH ×3 (02:07→17:55)
[2018-09-20] MEDS ORDERED: NACL 0.9% 500 ML 500 ML IV ONE (07:35)
--- NOTE | 2018-09-20 07:49 | Progress Note ---
Assessment and Plan Assessment and plan: Patient is 38 yo man originally from [facility], [place] with a history of HIV who presented with sob, fevers and cough. 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 Follow-up on current diagnosis of Bilateral PNA. No overnight events reported to me. Patient denies any chest pain, shortness breath, nausea/vomiting or severe headaches. Imaging, nursing note, chart, labs and old chart reviewed. Discussed with patient. Hospitalist Physical - Physical exam Narrative exam: Gen: thin, WDWN, NAD, Awake, Alert, Orientated HEENT: NCAT, EOMI, PERRL, OP Clear Neck: supple, no thyromegaly, no JVD CVS/Heart: RRR, normal S1S2, pulses present bilaterally Chest/Lungs: bilateral crackles and coarse bs bilaterally, Symmetrical chest expansion, good air entry bilaterally GI/Abdomen: soft, NTND, good bowel sounds, no guarding or rebound /Bladder: no suprapubic tenderness, no CVA or paraspinal tenderness Extermity/Skin: no c/c/e, no obvious rash MSK: FROM x 4 Neuro: CN 2-12 grossly intact, no new focal deficits Psych: calm - Constitutional Vitals: Temp Pulse Resp BP Pulse Ox 100.3 F H 94 H 20 119/76 95 09/20/18 05:33 09/19/18 22:38 09/20/18 05:33 09/20/18 05:33 09/19/18 22:38 Results - Labs CBC & Chem 7: 09/19/18 Unknown 09/19/18 Unknown Labs: Laboratory Last Values WBC 6.6 K/mm3 (4.5-11.0) 09/19/18 Unknown RBC 4.58 M/mm3 (3.65-5.03) 09/19/18 Unknown Hgb 11.7 gm/dl (11.8-15.2) L 09/19/18 Unknown Hct 34.7 % (35.5-45.6) L D 09/19/18 Unknown MCV 76 fl (84-94) L 09/19/18 Unknown MCH 26 pg (28-32) L 09/19/18 Unknown MCHC 34 % (32-34) 09/19/18 Unknown RDW 14.4 % (13.2-15.2) 09/19/18 Unknown Plt Count 139 K/mm3 (140-440) L 09/19/18 Unknown Lymph % (Auto) 3.6 % (13.4-35.0) L 09/18/18 10:35 Wise % (Auto) 11.3 % (0.0-7.3) H 09/18/18 10:35 Eos % (Auto) 3.5 % (0.0-4.3) 09/18/18 10:35 Baso % (Auto) 0.1 % (0.0-1.8) 09/18/18 10:35 Lymph # 0.3 K/mm3 (1.2-5.4) L 09/18/18 10:35 Wise # 0.9 K/mm3 (0.0-0.8) H 09/18/18 10:35 Eos # 0.3 K/mm3 (0.0-0.4) 09/18/18 10:35 Baso # 0.0 K/mm3 (0.0-0.1) 09/18/18 10:35 Add Manual Diff Complete 09/19/18 Unknown Total Counted 100 09/19/18 Unknown Seg Neutrophils % Employee Relations Assistant 09/19/18 Unknown Seg Neuts % (Manual) 92.0 % (40.0-70.0) H 09/19/18 Unknown 5.0 % 09/19/18 Unknown 0 % (13.4-35.0) L 09/19/18 Unknown Reactive Lymphs % (Man) 0 % 09/19/18 Unknown 3.0 % (0.0-7.3) 09/19/18 Unknown 0 % (0.0-4.3) 09/19/18 Unknown 0 % (0.0-1.8) 09/19/18 Unknown 0 % 09/19/18 Unknown 0 % 09/19/18 Unknown 0 % 09/19/18 Unknown 0 % 09/19/18 Unknown Nucleated RBC % Not Reportable 09/19/18 Unknown Seg Neutrophils # 6.4 K/mm3 (1.8-7.7) 09/18/18 10:35 Seg Neutrophils # Man 6.1 K/mm3 (1.8-7.7) 09/19/18 Unknown Band Neutrophils # 0.3 K/mm3 09/19/18 Unknown 0.0 K/mm3 (1.2-5.4) L 09/19/18 Unknown Abs React Lymphs (Man) 0.0 K/mm3 09/19/18 Unknown 0.2 K/mm3 (0.0-0.8) 09/19/18 Unknown 0.0 K/mm3 (0.0-0.4) 09/19/18 Unknown 0.0 K/mm3 (0.0-0.1) 09/19/18 Unknown 0.0 K/mm3 09/19/18 Unknown 0.0 K/mm3 09/19/18 Unknown 0.0 K/mm3 09/19/18 Unknown Blast Cells # 0.0 K/mm3 09/19/18 Unknown WBC Morphology Not Reportable 09/19/18 Unknown Hypersegmented Neuts Not Reportable 09/19/18 Unknown Hyposegmented Neuts Not Reportable 09/19/18 Unknown Hypogranular Neuts Not Reportable 09/19/18 Unknown Not Reportable 09/19/18 Unknown Not Reportable 09/19/18 Unknown Not Reportable 09/19/18 Unknown Not Reportable 09/19/18 Unknown Not Reportable 09/19/18 Unknown Not Reportable 09/19/18 Unknown Consistent w auto 09/19/18 Unknown Not Reportable 09/19/18 Unknown Plt Clumps, EDTA Not Reportable 09/19/18 Unknown Not Reportable 09/19/18 Unknown Rare 09/19/18 Unknown Not Reportable 09/19/18 Unknown Plt Morphology Comment Not Reportable 09/19/18 Unknown RBC Morphology Not Reportable 09/19/18 Unknown Dimorphic RBCs Not Reportable 09/19/18 Unknown Not Reportable 09/19/18 Unknown Not Reportable 09/19/18 Unknown Not Reportable 09/19/18 Unknown Not Reportable 09/19/18 Unknown Not Reportable 09/19/18 Unknown Not Reportable 09/19/18 Unknown Not Reportable 09/19/18 Unknown Not Reportable 09/19/18 Unknown Not Reportable 09/19/18 Unknown Not Reportable 09/19/18 Unknown Not Reportable 09/19/18 Unknown Few 09/19/18 Unknown Not Reportable 09/19/18 Unknown Not Reportable 09/19/18 Unknown Not Reportable 09/19/18 Unknown Not Reportable 09/19/18 Unknown Not Reportable 09/19/18 Unknown Not Reportable 09/19/18 Unknown Not Reportable 09/19/18 Unknown Acanthocytes (Spur) Not Reportable 09/19/18 Unknown Rouleaux Not Reportable 09/19/18 Unknown Not Reportable 09/19/18 Unknown Not Reportable 09/19/18 Unknown Not Reportable 09/19/18 Unknown Not Reportable 09/19/18 Unknown Hem Pathologist Commnt No 09/19/18 Unknown PT 12.8 Sec. (12.2-14.9) 09/18/18 10:35 INR 0.91 (0.87-1.13) 09/18/18 10:35 APTT 29.8 Sec. (24.2-36.6) 09/18/18 10:35 326.74 ng/mlDDU (0-234) H 09/18/18 10:35 VBG pH 7.363 (7.320-7.420) 09/18/18 10:35 Sodium 135 mmol/L (137-145) L 09/19/18 Unknown Potassium 4.1 mmol/L (3.6-5.0) 09/19/18 Unknown Chloride 103.2 mmol/L (98-107) 09/19/18 Unknown Carbon Dioxide 18 mmol/L (22-30) L 09/19/18 Unknown 18 mmol/L 09/19/18 Unknown BUN 25 mg/dL (9-20) H 09/19/18 Unknown 1.2 mg/dL (0.8-1.5) 09/19/18 Unknown Estimated GFR > 60 ml/min 09/19/18 Unknown 21 % 09/19/18 Unknown Glucose 84 mg/dL (75-100) 09/19/18 Unknown 5.7 % (4-6) 09/18/18 20:01 Lactic Acid 1.10 mmol/L (0.7-2.0) 09/18/18 15:20 Calcium 8.0 mg/dL (8.4-10.2) L 09/19/18 Unknown 0.30 mg/dL (0.1-1.2) 09/19/18 Unknown AST 31 units/L (5-40) 09/19/18 Unknown ALT 31 units/L (7-56) 09/19/18 Unknown 96 units/L (35-129) 09/19/18 Unknown 211 units/L (91-180) H 09/19/18 Unknown < 0.010 ng/mL (0.00-0.029) 09/18/18 10:35 7.0 g/dL (6.3-8.2) 09/19/18 Unknown 2.7 g/dL (3.9-5) L 09/19/18 Unknown 0.6 % 09/19/18 Unknown TSH 0.711 mlU/mL (0.270-4.200) 09/18/18 10:35 Yellow (Yellow) 09/18/18 14:55 Clear (Clear) 09/18/18 14:55 5.0 (5.0-7.0) 09/18/18 14:55 Ur Specific [place] 1.025 (1.003-1.030) 09/18/18 14:55 30 mg/dl mg/dL (Negative) 09/18/18 14:55 Neg mg/dL (Negative) 09/18/18 14:55 Neg mg/dL (Negative) 09/18/18 14:55 Neg (Negative) 09/18/18 14:55 Neg (Negative) 09/18/18 14:55 Neg (Negative) 09/18/18 14:55 < 2.0 mg/dL (<2.0) 09/18/18 14:55 Ur Leukocyte Esterase Neg (Negative) 09/18/18 14:55 8.0 /HPF (0.0-6.0) H 09/18/18 14:55 1.0 /HPF (0.0-6.0) 09/18/18 14:55 U Epithel Cells (Auto) < 1.0 /HPF (0-13.0) 09/18/18 14:55 Few /HPF 09/18/18 14:55 Hepatitis A IgM Ab Non-reactive (NonReactive) 09/19/18 Unknown Hep Bs Antigen Non-reactive (Negative) 09/19/18 Unknown Hep B Core IgM Ab Non-reactive (NonReactive) 09/19/18 Unknown Non-reactive (NonReactive) 09/19/18 Unknown HIV 1&2 Antibody Rapid Reactive (Non React) 09/18/18 20:01 Non react (Non React) 09/18/18 20:01 Active Medications - Current Medications Current Medications: Generic Name Dose Route Start Last Admin Trade Name Freq PRN Reason Stop Dose Admin Acetaminophen 650 mg 09/18/18 18:19 09/19/18 06:04 Tylenol PO 650 mg Q4H PRN Administration Pain MILD(1-3)/Fever >100.5/LANDAVERDE Albuterol/Ipratropium 1 ampul 09/18/18 21:00 Duoneb *Not For Prn Use* IH Q3H PRN Wheezing Famotidine 20 mg 09/18/18 22:00 09/19/18 21:18 Pepcid PO 20 mg BID LEIGH Administration Guaifenesin 10 ml 09/19/18 01:51 09/19/18 03:11 Guaifenesin Dm Syrup PO 10 ml Q4H PRN Administration Cough Hydromorphone HCl 0.5 mg 09/18/18 18:19 09/19/18 00:06 Dilaudid IV 0.5 mg Q3H PRN Administration Pain , Severe (7-10) Ceftriaxone Sodium 2 gm in 100 mls @ 200 mls/hr 09/18/18 19:00 09/19/18 10:45 Rocephin/Ns 2 Gm/100 Ml IV 200 mls/hr Q24HR LEIGH Administration Protocol Azithromycin 500 mg/ Sodium 250 mls @ 250 mls/hr 09/18/18 19:00 09/19/18 12:55 Chloride IV 250 mls/hr Q24HR LEIGH Administration Trimethoprim/Sulfamethoxazole 521.875 mls @ 350 mls/hr 09/20/18 02:00 09/20/18 02:07 350 mg/ Dextrose IV 350 mls/hr Q8H LEIGH Administration Protocol Sodium Chloride 500 mls @ 999 mls/hr 09/20/18 07:35 Nacl 0.9% 500 Ml IV 09/20/18 08:05 ONCE ONE Sodium Chloride 1,000 mls @ 100 mls/hr 09/20/18 08:00 Nacl 0.9% 1000 Ml IV DIRECT LEIGH Metoclopramide HCl 10 mg 09/18/18 18:19 09/19/18 00:06 Reglan IV 10 mg Q6H PRN Administration Nausea And Vomiting Ondansetron HCl 4 mg 09/18/18 18:19 Zofran IV Q8H PRN Nausea And Vomiting Sodium Chloride 10 ml 09/18/18 22:00 09/19/18 21:19 Sodium Chloride Flush Syringe 10 Ml IV 10 ml BID LEIGH Administration Sodium Chloride 10 ml 09/18/18 18:19 Sodium Chloride Flush Syringe 10 Ml IV PRN PRN LINE FLUSH
--- NOTE | 2018-09-20 08:09 | Progress Note ---
Assessment and Plan Cultures: 09/18/2018 blood culture: No growth 09/18/2018 urine culture: No growth 09/19/2018 sputum culture: Contaminated with saliva A/P: 38-year-old male originally from [place], diagnosed with HIV in 2016, risk factor is heterosexual contact. Admitted with 2 week history of fever and cough: 1) Sepsis, likely secondary to bilateral pneumonia: Noted fever spike 102.8. In the setting of HIV, patient originally from [place]. On CT imaging, there is a little bit of miliary type pattern in the lung bases. Agree with airborne isolation, need to rule out community-acquired pneumonia versus TB versus PCP pneumonia. 2) HIV, likely AIDS: Noncompliant with medications. Labs suggestive of absolute lymphopenia. Recs: Continue ceftriaxone and azithromycin for now continue Empiric IV Bactrim Airborne isolation Follow-up AFB sputum's and smear 3 Follow-up Serum cryptococcal antigen ordered Follow-up Sputum ordered for PCP DFA Follow-up HIV viral load, CD4 lymphocyte count Follow-up LDH Patient refusing labs, D/W Dr. Ambrocio Olson, [facility] M: [phone] O:[phone] Subjective Date of service: 09/20/18 Interval history: Patient seen and examined. Asleep, difficult to arouse, mostly non- conversational . Reported continued chest pain and coughing. Fevers continuing. Objective - Exam Narrative Exam: Constitutional: Asleep, difficult to arouse. Mild distress observed Head, Ears, Nose: Normocephalic, atraumatic. External ears, nose normal Eyes: + icterus. no conjunctivitis or drainage Neck: Supple, no meningeal signs Oral: dentition fair, no thrush Cardiovascular: S1, S2 normal. Respiratory: bilateral basal crackles GI: Soft, non-tender; bowel sounds normal. No peritoneal signs Musculoskeletal: No pedal edema, no cyanosis. Skin: No rash or abscess Hem/Lymphatic: No palpable cervical or supraclavicular nodes. No lymphangitis Psych: unable to assess, difficult to arouse Neurological: Asleep, difficult to arouse. mostly non-conversational - Constitutional Vitals: Vital Signs Temp Pulse Resp BP Pulse Ox 100.3 F H 94 H 20 119/76 95 09/20/18 05:33 09/19/18 22:38 09/20/18 05:33 09/20/18 05:33 09/19/18 22:38 Temperature -Last 24 Hours Temperature 100.3 F Temperature 98.8 F Temperature 102.8 F Temperature 99.9 F - Labs CBC & Chem 7: 09/19/18 Unknown 09/19/18 Unknown Labs: Abnormal lab results 09/19/18 09/19/18 Range/Units Unknown Unknown Seg Neuts % (Manual) 92.0 H (40.0-70.0) % Lymphocytes % (Manual) 0 L (13.4-35.0) % Lymphocytes # (Manual) 0.0 L (1.2-5.4) K/mm3 Lactate Dehydrogenase 211 H (91-180) units/L
[2018-09-20] MEDS: ROCEPHIN/NS 2 GM/100 ML 2 GM/100 ML BAG IV SCH (09:45)
[2018-09-20] MEDS: NACL 0.9% 1000 ML 1,000 ML IV SCH (09:45)
[2018-09-20] MEDS: PEPCID PO SCH ×2 (09:46→21:50)
[2018-09-20] MEDS: SODIUM CHLORIDE FLUSH SYRINGE 10 ML IV SCH ×2 (09:46→21:53)
[2018-09-20] MEDS: ZITHROMAX 500 MG in NACL 0.9% 250ML 250 ML IV SCH (10:08)
[2018-09-20] MEDS: TYLENOL PO PRN ×2 (13:29→21:50)
[2018-09-20 16:38] LABS: Hematocrit 32.8 % (35.5-45.6); Hemoglobin 11.1 gm/dl (11.8-15.2); Mean Corpuscular HGB Conc 34 % (32-34); Mean Corpuscular Volume 75 fl (84-94); Platelet Count 158 K/mm3 (140-440); Red Blood Count 4.35 M/mm3 (3.65-5.03); Red Cell Distribution Width 14.4 % (13.2-15.2)
[2018-09-20 16:58] LABS: Alanine Aminotransferase 23 units/L (7-56); Albumin 2.4 g/dL (3.9-5); BUN/Creatinine Ratio 10; Blood Urea Nitrogen 12 mg/dL (9-20); Calcium 7.9 mg/dL (8.4-10.2); Hemolysis Index 4
[2018-09-20] MEDS ORDERED: RESTORIL PO PRN (22:46)
[2018-09-21] MEDS: BACTRIM 350 MG in D5W 500 ML IV SCH ×3 (05:11→19:34)
[2018-09-21] MEDS ORDERED: K-DUR PO ONE ×2 (08:28→08:29)
--- NOTE | 2018-09-21 08:30 | Progress Note ---
Assessment and Plan Assessment and plan: Patient is 38 yo man originally from [facility], [place] with a history of HIV who presented with sob, fevers and cough. 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 Gold test History Interval history: Patient was seen and examined. Follow-up on current diagnosis of Bilateral PNA. No overnight events reported to me. Patient denies any chest pain, shortness breath, nausea/vomiting or severe headaches. Imaging, nursing note, chart, labs and old chart reviewed. Discussed with patient. Hospitalist Physical - Physical exam Narrative exam: Gen: thin, WDWN, NAD, Awake, Alert, Orientated HEENT: NCAT, EOMI, PERRL, OP Clear Neck: supple, no thyromegaly, no JVD CVS/Heart: RRR, normal S1S2, pulses present bilaterally Chest/Lungs: bilateral crackles and coarse bs bilaterally, Symmetrical chest expansion, good air entry bilaterally GI/Abdomen: soft, NTND, good bowel sounds, no guarding or rebound /Bladder: no suprapubic tenderness, no CVA or paraspinal tenderness Extermity/Skin: no c/c/e, no obvious rash MSK: FROM x 4 Neuro: CN 2-12 grossly intact, no new focal deficits Psych: calm - Constitutional Vitals: Temp Pulse Resp BP Pulse Ox 99.8 F H 95 H 20 129/58 98 09/21/18 05:41 09/20/18 18:09 09/21/18 05:41 09/21/18 05:41 09/20/18 16:50 Results - Labs CBC & Chem 7: 09/20/18 15:45 09/20/18 15:45 Labs: Laboratory Last Values WBC 5.0 K/mm3 (4.5-11.0) 09/20/18 15:45 RBC 4.35 M/mm3 (3.65-5.03) 09/20/18 15:45 Hgb 11.1 gm/dl (11.8-15.2) L 09/20/18 15:45 Hct 32.8 % (35.5-45.6) L 09/20/18 15:45 MCV 75 fl (84-94) L 09/20/18 15:45 MCH 26 pg (28-32) L 09/20/18 15:45 MCHC 34 % (32-34) 09/20/18 15:45 RDW 14.4 % (13.2-15.2) 09/20/18 15:45 Plt Count 158 K/mm3 (140-440) 09/20/18 15:45 Lymph % (Auto) 3.6 % (13.4-35.0) L 09/18/18 10:35 [place] % (Auto) 11.3 % (0.0-7.3) H 09/18/18 10:35 Eos % (Auto) 3.5 % (0.0-4.3) 09/18/18 10:35 Baso % (Auto) 0.1 % (0.0-1.8) 09/18/18 10:35 Lymph # 0.3 K/mm3 (1.2-5.4) L 09/18/18 10:35 [place] # 0.9 K/mm3 (0.0-0.8) H 09/18/18 10:35 Eos # 0.3 K/mm3 (0.0-0.4) 09/18/18 10:35 Baso # 0.0 K/mm3 (0.0-0.1) 09/18/18 10:35 Add Manual Diff Complete 09/19/18 Unknown Total Counted 100 09/19/18 Unknown Seg 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 % Classroom 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 09/19/18 Unknown Seg Neuts % (Manual) 92.0 % (40.0-70.0) H 09/19/18 Unknown 5.0 % 09/19/18 Unknown 0 % (13.4-35.0) L 09/19/18 Unknown Reactive Lymphs % (Man) 0 % 09/19/18 Unknown 3.0 % (0.0-7.3) 09/19/18 Unknown 0 % (0.0-4.3) 09/19/18 Unknown 0 % (0.0-1.8) 09/19/18 Unknown 0 % 09/19/18 Unknown 0 % 09/19/18 Unknown 0 % 09/19/18 Unknown 0 % 09/19/18 Unknown Nucleated RBC % Not Reportable 09/19/18 Unknown Seg Neutrophils # 6.4 K/mm3 (1.8-7.7) 09/18/18 10:35 Seg Neutrophils # Man 6.1 K/mm3 (1.8-7.7) 09/19/18 Unknown Band Neutrophils # 0.3 K/mm3 09/19/18 Unknown 0.0 K/mm3 (1.2-5.4) L 09/19/18 Unknown Abs React Lymphs (Man) 0.0 K/mm3 09/19/18 Unknown 0.2 K/mm3 (0.0-0.8) 09/19/18 Unknown 0.0 K/mm3 (0.0-0.4) 09/19/18 Unknown 0.0 K/mm3 (0.0-0.1) 09/19/18 Unknown 0.0 K/mm3 09/19/18 Unknown 0.0 K/mm3 09/19/18 Unknown 0.0 K/mm3 09/19/18 Unknown Blast Cells # 0.0 K/mm3 09/19/18 Unknown WBC Morphology Not Reportable 09/19/18 Unknown Hypersegmented Neuts Not Reportable 09/19/18 Unknown Hyposegmented Neuts Not Reportable 09/19/18 Unknown Hypogranular Neuts Not Reportable 09/19/18 Unknown Not Reportable 09/19/18 Unknown Not Reportable 09/19/18 Unknown Not Reportable 09/19/18 Unknown Not Reportable 09/19/18 Unknown Not Reportable 09/19/18 Unknown Not Reportable 09/19/18 Unknown Consistent w auto 09/19/18 Unknown Not Reportable 09/19/18 Unknown Plt Clumps, EDTA Not Reportable 09/19/18 Unknown Not Reportable 09/19/18 Unknown Rare 09/19/18 Unknown Not Reportable 09/19/18 Unknown Plt Morphology Comment Not Reportable 09/19/18 Unknown RBC Morphology Not Reportable 09/19/18 Unknown Dimorphic RBCs Not Reportable 09/19/18 Unknown Not Reportable 09/19/18 Unknown Not Reportable 09/19/18 Unknown Not Reportable 09/19/18 Unknown Not Reportable 09/19/18 Unknown Not Reportable 09/19/18 Unknown Not Reportable 09/19/18 Unknown Not Reportable 09/19/18 Unknown Not Reportable 09/19/18 Unknown Not Reportable 09/19/18 Unknown Not Reportable 09/19/18 Unknown Not Reportable 09/19/18 Unknown Few 09/19/18 Unknown Not Reportable 09/19/18 Unknown Not Reportable 09/19/18 Unknown Not Reportable 09/19/18 Unknown Not Reportable 09/19/18 Unknown Not Reportable 09/19/18 Unknown Not Reportable 09/19/18 Unknown Not Reportable 09/19/18 Unknown Acanthocytes (Spur) Not Reportable 09/19/18 Unknown Rouleaux Not Reportable 09/19/18 Unknown Not Reportable 09/19/18 Unknown Not Reportable 09/19/18 Unknown Not Reportable 09/19/18 Unknown Not Reportable 09/19/18 Unknown Hem Pathologist Commnt No 09/19/18 Unknown PT 12.8 Sec. (12.2-14.9) 09/18/18 10:35 INR 0.91 (0.87-1.13) 09/18/18 10:35 APTT 29.8 Sec. (24.2-36.6) 09/18/18 10:35 326.74 ng/mlDDU (0-234) H 09/18/18 10:35 VBG pH 7.363 (7.320-7.420) 09/18/18 10:35 Sodium 130 mmol/L (137-145) L 09/20/18 15:45 Potassium 3.5 mmol/L (3.6-5.0) L 09/20/18 15:45 Chloride 103.5 mmol/L (98-107) 09/20/18 15:45 Carbon Dioxide 16 mmol/L (22-30) L 09/20/18 15:45 14 mmol/L 09/20/18 15:45 BUN 12 mg/dL (9-20) 09/20/18 15:45 1.2 mg/dL (0.8-1.5) 09/20/18 15:45 Estimated GFR > 60 ml/min 09/20/18 15:45 10 % 09/20/18 15:45 Glucose 118 mg/dL (75-100) H 09/20/18 15:45 5.7 % (4-6) 09/18/18 20:01 Lactic Acid 1.10 mmol/L (0.7-2.0) 09/18/18 15:20 Calcium 7.9 mg/dL (8.4-10.2) L 09/20/18 15:45 0.20 mg/dL (0.1-1.2) 09/20/18 15:45 AST 30 units/L (5-40) 09/20/18 15:45 ALT 23 units/L (7-56) 09/20/18 15:45 75 units/L (35-129) 09/20/18 15:45 211 units/L (91-180) H 09/19/18 Unknown < 0.010 ng/mL (0.00-0.029) 09/18/18 10:35 6.3 g/dL (6.3-8.2) 09/20/18 15:45 2.4 g/dL (3.9-5) L 09/20/18 15:45 0.6 % 09/20/18 15:45 TSH 0.711 mlU/mL (0.270-4.200) 09/18/18 10:35 Yellow (Yellow) 09/18/18 14:55 Clear (Clear) 09/18/18 14:55 5.0 (5.0-7.0) 09/18/18 14:55 Ur Specific [place] 1.025 (1.003-1.030) 09/18/18 14:55 30 mg/dl mg/dL (Negative) 09/18/18 14:55 Neg mg/dL (Negative) 09/18/18 14:55 Neg mg/dL (Negative) 09/18/18 14:55 Neg (Negative) 09/18/18 14:55 Neg (Negative) 09/18/18 14:55 Neg (Negative) 09/18/18 14:55 < 2.0 mg/dL (<2.0) 09/18/18 14:55 Ur Leukocyte Esterase Neg (Negative) 09/18/18 14:55 8.0 /HPF (0.0-6.0) H 09/18/18 14:55 1.0 /HPF (0.0-6.0) 09/18/18 14:55 U Epithel Cells (Auto) < 1.0 /HPF (0-13.0) 09/18/18 14:55 Few /HPF 09/18/18 14:55 Hepatitis A IgM Ab Non-reactive (NonReactive) 09/19/18 Unknown Hep Bs Antigen Non-reactive (Negative) 09/19/18 Unknown Hep B Core IgM Ab Non-reactive (NonReactive) 09/19/18 Unknown Non-reactive (NonReactive) 09/19/18 Unknown HIV 1&2 Antibody Rapid Reactive (Non React) 09/18/18 20:01 Non react (Non React) 09/18/18 20:01 Active Medications - Current Medications Current Medications: Generic Name Dose Route Start Last Admin Trade Name Freq PRN Reason Stop Dose Admin Acetaminophen 650 mg 09/18/18 18:19 09/20/18 21:50 Tylenol PO 650 mg Q4H PRN Administration Pain MILD(1-3)/Fever >100.5/LANDAVERDE Albuterol/Ipratropium 1 ampul 09/18/18 21:00 Duoneb *Not For Prn Use* IH Q3H PRN Wheezing Famotidine 20 mg 09/18/18 22:00 09/20/18 21:50 Pepcid PO 20 mg BID LEIGH Administration Guaifenesin 10 ml 09/19/18 01:51 09/20/18 13:29 Guaifenesin Dm Syrup PO 10 ml Q4H PRN Administration Cough Hydromorphone HCl 0.5 mg 09/18/18 18:19 09/19/18 00:06 Dilaudid IV 0.5 mg Q3H PRN Administration Pain , Severe (7-10) Ceftriaxone Sodium 2 gm in 100 mls @ 200 mls/hr 09/18/18 19:00 09/20/18 09:45 Rocephin/Ns 2 Gm/100 Ml IV 200 mls/hr Q24HR LEIGH Administration Protocol Azithromycin 500 mg/ Sodium 250 mls @ 250 mls/hr 09/18/18 19:00 09/20/18 1 0:08 Chloride IV 250 mls/hr Q24HR LEIGH Administration Trimethoprim/Sulfamethoxazole 521.875 mls @ 350 mls/hr 09/20/18 02:00 09/21/18 05:11 350 mg/ Dextrose IV 350 mls/hr Q8H LEIGH Administration Protocol Sodium Chloride 1,000 mls @ 100 mls/hr 09/20/18 09:00 09/20/18 09:45 Nacl 0.9% 1000 Ml IV 100 mls/hr DIRECT LEIGH Administration Metoclopramide HCl 10 mg 09/18/18 18:19 09/19/18 00:06 Reglan IV 10 mg Q6H PRN Administration Nausea And Vomiting Ondansetron HCl 4 mg 09/18/18 18:19 Zofran IV Q8H PRN Nausea And Vomiting Sodium Chloride 10 ml 09/18/18 22:00 09/20/18 21:53 Sodium Chloride Flush Syringe 10 Ml IV 10 ml BID LEIGH Administration Sodium Chloride 10 ml 09/18/18 18:19 Sodium Chloride Flush Syringe 10 Ml IV PRN PRN LINE FLUSH Temazepam 15 mg 09/20/18 22:46 09/20/18 23:30 Restoril PO 15 mg QHS PRN Administration Sleep
--- NOTE | 2018-09-21 08:46 | Progress Note ---
Assessment and Plan Cultures: 09/18/2018 blood culture: No growth 09/18/2018 urine culture: No growth 09/19/2018 sputum culture: Contaminated with saliva 09/19/2018 cryptococcal antigen: negative A/P: 38-year-old male originally from [place], diagnosed with HIV in 2016, risk factor is heterosexual contact. Admitted with 2 week history of fever and cough: 1) Sepsis, likely secondary to bilateral pneumonia: Fever spikes continuing. In the setting of HIV, patient originally from [place]. On CT imaging, there is a little bit of miliary type pattern in the lung bases. Agree with airborne isolation, need to rule out community-acquired pneumonia versus TB versus PCP pneumonia. Hepatitis series nonreactive. 2) HIV, likely AIDS: Noncompliant with medications. Labs suggestive of absolute lymphopenia. 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 Netta Olson NP [facility] M: [phone] O:[phone] Subjective Date of service: 09/21/18 Interval history: Patient seen and examined. Asleep, easy to arouse. Reports pleuritic chest pain with cough. Fevers continuing. Objective - Exam Narrative Exam: Constitutional: Asleep. Easy to arouse. Mild distress observed Head, Ears, Nose: Normocephalic, atraumatic. External ears, nose normal Eyes: + icterus. no conjunctivitis or drainage Neck: Supple, no meningeal signs Oral: dentition fair, no thrush Cardiovascular: S1, S2 normal. Respiratory: bilateral basal crackles GI: Soft, non-tender; bowel sounds normal. No peritoneal signs Musculoskeletal: No pedal edema, no cyanosis. Skin: No rash or abscess Hem/Lymphatic: No palpable cervical or supraclavicular nodes. No lymphangitis Psych:calm, not agitated Neurological: Asleep. easy to arouse. oriented - Constitutional Vitals: Vital Signs Temp Pulse Resp BP Pulse Ox 99.8 F H 95 H 20 129/58 98 09/21/18 05:41 09/20/18 18:09 09/21/18 05:41 09/21/18 05:41 09/20/18 16:50 Temperature -Last 24 Hours Temperature 99.8 F Temperature 100.1 F Temperature 101.1 F Temperature 99.2 F Temperature 102.4 F - Labs CBC & Chem 7: 09/20/18 15:45 09/20/18 15:45 Labs: Abnormal lab results 09/20/18 09/20/18 Range/Units 15:45 15:45 Hgb 11.1 L (11.8-15.2) gm/dl Hct 32.8 L (35.5-45.6) % MCV 75 L (84-94) fl MCH 26 L (28-32) pg Sodium 130 L (137-145) mmol/L Potassium 3.5 L (3.6-5.0) mmol/L Carbon Dioxide 16 L (22-30) mmol/L Glucose 118 H (75-100) mg/dL Calcium 7.9 L (8.4-10.2) mg/dL Albumin 2.4 L (3.9-5) g/dL
[2018-09-21] MEDS: PEPCID PO SCH ×2 (09:56→21:51)
[2018-09-21] MEDS: ZITHROMAX 500 MG in NACL 0.9% 250ML 250 ML IV SCH (09:57)
[2018-09-21] MEDS: SODIUM CHLORIDE FLUSH SYRINGE 10 ML IV SCH (10:07)
[2018-09-21] MEDS: NACL 0.9% 1000 ML 1,000 ML IV SCH (12:01)
[2018-09-21] MEDS: ROCEPHIN/NS 2 GM/100 ML 2 GM/100 ML BAG IV SCH (12:01)
[2018-09-21] MEDS: TYLENOL PO PRN ×2 (12:08→21:55)
[2018-09-22] MEDS: BACTRIM 350 MG in D5W 500 ML IV SCH ×3 (01:09→18:36)
[2018-09-22] MEDS: SODIUM CHLORIDE FLUSH SYRINGE 10 ML IV SCH ×3 (01:09→22:06)
[2018-09-22] MEDS: ROCEPHIN/NS 2 GM/100 ML 2 GM/100 ML BAG IV SCH (09:01)
[2018-09-22] MEDS: PEPCID PO SCH ×2 (09:01→22:06)
[2018-09-22] MEDS: ZITHROMAX 500 MG in NACL 0.9% 250ML 250 ML IV SCH (09:06)
[2018-09-22] MEDS: TYLENOL PO PRN (13:10)
--- NOTE | 2018-09-22 14:23 | Progress Note ---
Assessment and Plan Assessment and plan: Patient is 38 yo man originally from [facility], [place] with a history of HIV who presented with sob, fevers and cough. 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 History Interval history: Patient was seen and examined. Follow-up on current diagnosis of Bilateral PNA. No overnight events reported to me. Patient denies any chest pain, shortness breath, nausea/vomiting or severe headaches. Imaging, nursing note, chart, labs and old chart reviewed. Discussed with patient. Hospitalist Physical - Physical exam Narrative exam: Gen: thin, WDWN, NAD, Awake, Alert, Orientated HEENT: NCAT, EOMI, PERRL, OP Clear Neck: supple, no thyromegaly, no JVD CVS/Heart: RRR, normal S1S2, pulses present bilaterally Chest/Lungs: bilateral crackles and coarse bs bilaterally, Symmetrical chest expansion, good air entry bilaterally GI/Abdomen: soft, NTND, good bowel sounds, no guarding or rebound /Bladder: no suprapubic tenderness, no CVA or paraspinal tenderness Extermity/Skin: no c/c/e, no obvious rash MSK: FROM x 4 Neuro: CN 2-12 grossly intact, no new focal deficits Psych: calm - Constitutional Vitals: Temp Pulse Resp BP Pulse Ox 98.8 F 102 H 17 108/76 100 09/22/18 05:43 09/21/18 22:37 09/22/18 10:00 09/22/18 05:43 09/21/18 22:37 Results - Labs CBC & Chem 7: 09/20/18 15:45 09/20/18 15:45 Labs: Laboratory Last Values WBC 5.0 K/mm3 (4.5-11.0) 09/20/18 15:45 RBC 4.35 M/mm3 (3.65-5.03) 09/20/18 15:45 Hgb 11.1 gm/dl (11.8-15.2) L 09/20/18 15:45 Hct 32.8 % (35.5-45.6) L 09/20/18 15:45 MCV 75 fl (84-94) L 09/20/18 15:45 MCH 26 pg (28-32) L 09/20/18 15:45 MCHC 34 % (32-34) 09/20/18 15:45 RDW 14.4 % (13.2-15.2) 09/20/18 15:45 Plt Count 158 K/mm3 (140-440) 09/20/18 15:45 Lymph % (Auto) 3.6 % (13.4-35.0) L 09/18/18 10:35 [place] % (Auto) 11.3 % (0.0-7.3) H 09/18/18 10:35 Eos % (Auto) 3.5 % (0.0-4.3) 09/18/18 10:35 Baso % (Auto) 0.1 % (0.0-1.8) 09/18/18 10:35 Lymph # 0.3 K/mm3 (1.2-5.4) L 09/18/18 10:35 [place] # 0.9 K/mm3 (0.0-0.8) H 09/18/18 10:35 Eos # 0.3 K/mm3 (0.0-0.4) 09/18/18 10:35 Baso # 0.0 K/mm3 (0.0-0.1) 09/18/18 10:35 Add Manual Diff Complete 09/19/18 Unknown Total Counted 100 09/19/18 Unknown Seg Neutrophils % Collar Closer Lockstitch 09/19/18 Unknown Seg Neuts % (Manual) 92.0 % (40.0-70.0) H 09/19/18 Unknown 5.0 % 09/19/18 Unknown 0 % (13.4-35.0) L 09/19/18 Unknown Reactive Lymphs % (Man) 0 % 09/19/18 Unknown 3.0 % (0.0-7.3) 09/19/18 Unknown 0 % (0.0-4.3) 09/19/18 Unknown 0 % (0.0-1.8) 09/19/18 Unknown 0 % 09/19/18 Unknown 0 % 09/19/18 Unknown 0 % 09/19/18 Unknown 0 % 09/19/18 Unknown Nucleated RBC % Not Reportable 09/19/18 Unknown Seg Neutrophils # 6.4 K/mm3 (1.8-7.7) 09/18/18 10:35 Seg Neutrophils # Man 6.1 K/mm3 (1.8-7.7) 09/19/18 Unknown Band Neutrophils # 0.3 K/mm3 09/19/18 Unknown 0.0 K/mm3 (1.2-5.4) L 09/19/18 Unknown Abs React Lymphs (Man) 0.0 K/mm3 09/19/18 Unknown 0.2 K/mm3 (0.0-0.8) 09/19/18 Unknown 0.0 K/mm3 (0.0-0.4) 09/19/18 Unknown 0.0 K/mm3 (0.0-0.1) 09/19/18 Unknown 0.0 K/mm3 09/19/18 Unknown 0.0 K/mm3 09/19/18 Unknown 0.0 K/mm3 09/19/18 Unknown Blast Cells # 0.0 K/mm3 09/19/18 Unknown WBC Morphology Not Reportable 09/19/18 Unknown Hypersegmented Neuts Not Reportable 09/19/18 Unknown Hyposegmented Neuts Not Reportable 09/19/18 Unknown Hypogranular Neuts Not Reportable 09/19/18 Unknown Not Reportable 09/19/18 Unknown Not Reportable 09/19/18 Unknown Not Reportable 09/19/18 Unknown Not Reportable 09/19/18 Unknown Not Reportable 09/19/18 Unknown Not Reportable 09/19/18 Unknown Consistent w auto 09/19/18 Unknown Not Reportable 09/19/18 Unknown Plt Clumps, EDTA Not Reportable 09/19/18 Unknown Not Reportable 09/19/18 Unknown Rare 09/19/18 Unknown Not Reportable 09/19/18 Unknown Plt Morphology Comment Not Reportable 09/19/18 Unknown RBC Morphology Not Reportable 09/19/18 Unknown Dimorphic RBCs Not Reportable 09/19/18 Unknown Not Reportable 09/19/18 Unknown Not Reportable 09/19/18 Unknown Not Reportable 09/19/18 Unknown Not Reportable 09/19/18 Unknown Not Reportable 09/19/18 Unknown Not Reportable 09/19/18 Unknown Not Reportable 09/19/18 Unknown Not Reportable 09/19/18 Unknown Not Reportable 09/19/18 Unknown Not Reportable 09/19/18 Unknown Not Reportable 09/19/18 Unknown Few 09/19/18 Unknown Not Reportable 09/19/18 Unknown Not Reportable 09/19/18 Unknown Not Reportable 09/19/18 Unknown Not Reportable 09/19/18 Unknown Not Reportable 09/19/18 Unknown Not Reportable 09/19/18 Unknown Not Reportable 09/19/18 Unknown Acanthocytes (Spur) Not Reportable 09/19/18 Unknown Rouleaux Not Reportable 09/19/18 Unknown Not Reportable 09/19/18 Unknown Not Reportable 09/19/18 Unknown Not Reportable 09/19/18 Unknown Not Reportable 09/19/18 Unknown Hem Pathologist Commnt No 09/19/18 Unknown PT 12.8 Sec. (12.2-14.9) 09/18/18 10:35 INR 0.91 (0.87-1.13) 09/18/18 10:35 APTT 29.8 Sec. (24.2-36.6) 09/18/18 10:35 326.74 ng/mlDDU (0-234) H 09/18/18 10:35 VBG pH 7.363 (7.320-7.420) 09/18/18 10:35 Sodium 130 mmol/L (137-145) L 09/20/18 15:45 Potassium 3.5 mmol/L (3.6-5.0) L 09/20/18 15:45 Chloride 103.5 mmol/L (98-107) 09/20/18 15:45 Carbon Dioxide 16 mmol/L (22-30) L 09/20/18 15:45 14 mmol/L 09/20/18 15:45 BUN 12 mg/dL (9-20) 09/20/18 15:45 1.2 mg/dL (0.8-1.5) 09/20/18 15:45 Estimated GFR > 60 ml/min 09/20/18 15:45 10 % 09/20/18 15:45 Glucose 118 mg/dL (75-100) H 09/20/18 15:45 5.7 % (4-6) 09/18/18 20:01 Lactic Acid 1.10 mmol/L (0.7-2.0) 09/18/18 15:20 Calcium 7.9 mg/dL (8.4-10.2) L 09/20/18 15:45 0.20 mg/dL (0.1-1.2) 09/20/18 15:45 AST 30 units/L (5-40) 09/20/18 15:45 ALT 23 units/L (7-56) 09/20/18 15:45 75 units/L (35-129) 09/20/18 15:45 211 units/L (91-180) H 09/19/18 Unknown < 0.010 ng/mL (0.00-0.029) 09/18/18 10:35 6.3 g/dL (6.3-8.2) 09/20/18 15:45 2.4 g/dL (3.9-5) L 09/20/18 15:45 0.6 % 09/20/18 15:45 TSH 0.711 mlU/mL (0.270-4.200) 09/18/18 10:35 Yellow (Yellow) 09/18/18 14:55 Clear (Clear) 09/18/18 14:55 5.0 (5.0-7.0) 09/18/18 14:55 Ur Specific [place] 1.025 (1.003-1.030) 09/18/18 14:55 30 mg/dl mg/dL (Negative) 09/18/18 14:55 Neg mg/dL (Negative) 09/18/18 14:55 Neg mg/dL (Negative) 09/18/18 14:55 Neg (Negative) 09/18/18 14:55 Neg (Negative) 09/18/18 14:55 Neg (Negative) 09/18/18 14:55 < 2.0 mg/dL (<2.0) 09/18/18 14:55 Ur Leukocyte Esterase Neg (Negative) 09/18/18 14:55 8.0 /HPF (0.0-6.0) H 09/18/18 14:55 1.0 /HPF (0.0-6.0) 09/18/18 14:55 U Epithel Cells (Auto) < 1.0 /HPF (0-13.0) 09/18/18 14:55 Few /HPF 09/18/18 14:55 Hepatitis A IgM Ab Non-reactive (NonReactive) 09/19/18 Unknown Hep Bs Antigen Non-reactive (Negative) 09/19/18 Unknown Hep B Core IgM Ab Non-reactive (NonReactive) 09/19/18 Unknown Non-reactive (NonReactive) 09/19/18 Unknown HIV 1&2 Antibody Rapid Reactive (Non React) 09/18/18 20:01 Non react (Non React) 09/18/18 20:01 09/19/18 Unknown Active Medications - Current Medications Current Medications: Generic Name Dose Route Start Last Admin Trade Name Freq PRN Reason Stop Dose Admin Acetaminophen 650 mg 09/18/18 18:19 09/22/18 13:10 Tylenol PO 650 mg Q4H PRN Administration Pain MILD(1-3)/Fever >100.5/LANDAVERDE Albuterol/Ipratropium 1 ampul 09/18/18 21:00 Duoneb *Not For Prn Use* IH Q3H PRN Wheezing Famotidine 20 mg 09/18/18 22:00 09/22/18 09:01 Pepcid PO 20 mg BID LEIGH Administration Guaifenesin 10 ml 09/19/18 01:51 09/22/18 13:11 Guaifenesin Dm Syrup PO 10 ml Q4H PRN Administration Cough Hydromorphone HCl 0.5 mg 09/18/18 18:19 09/19/18 00:06 Dilaudid IV 0.5 mg Q3H PRN Administration Pain , Severe (7-10) Ceftriaxone Sodium 2 gm in 100 mls @ 200 mls/hr 09/18/18 19:00 09/22/18 09:01 Rocephin/Ns 2 Gm/100 Ml IV 200 mls/hr Q24HR LEIGH Administration Protocol Azithromycin 500 mg/ Sodium 250 mls @ 250 mls/hr 09/18/18 19:00 09/22/18 09:06 Chloride IV 250 mls/hr Q24HR LEIGH Administration Trimethoprim/Sulfamethoxazole 521.875 mls @ 350 mls/hr 09/20/18 02:00 09/22/18 10:39 350 mg/ Dextrose IV 350 mls/hr Q8H LEIGH Administration Protocol Sodium Chloride 1,000 mls @ 100 mls/hr 09/20/18 09:00 09/21/18 12:01 Nacl 0.9% 1000 Ml IV 100 mls/hr DIRECT LEIGH Administration Metoclopramide HCl 10 mg 09/18/18 18:19 09/19/18 00:06 Reglan IV 10 mg Q6H PRN Administration Nausea And Vomiting Ondansetron HCl 4 mg 09/18/18 18:19 Zofran IV Q8H PRN Nausea And Vomiting Potassium Chloride 40 meq 09/22/18 14:18 K-Dur PO 09/22/18 14:19 ONCE ONE Sodium Chloride 10 ml 09/18/18 22:00 09/22/18 09:08 Sodium Chloride Flush Syringe 10 Ml IV 10 ml BID LEIGH Administration Sodium Chloride 10 ml 09/18/18 18:19 Sodium Chloride Flush Syringe 10 Ml IV PRN PRN LINE FLUSH Temazepam 15 mg 09/20/18 22:46 09/20/18 23:30 Restoril PO 15 mg QHS PRN Administration Sleep
[2018-09-22] MEDS ORDERED: K-DUR PO ONE (15:18)
[2018-09-22] MEDS: NACL 0.9% 1000 ML 1,000 ML IV SCH (18:41)
[2018-09-22] MEDS: DILAUDID IV PRN (23:17)
[2018-09-22] MEDS: REGLAN IV PRN (23:17)
[2018-09-23] MEDS: BACTRIM 350 MG in D5W 500 ML IV SCH ×3 (02:05→18:08)
[2018-09-23] MEDS: NACL 0.9% 1000 ML 1,000 ML IV SCH (07:40)
--- NOTE | 2018-09-23 08:36 | Progress Note ---
Assessment and Plan Assessment and plan: Patient is 38 yo man originally from [facility], [place] with a history of HIV who presented with sob, fevers and cough. 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 History Interval history: Patient was seen and examined. Follow-up on current diagnosis of Bilateral PNA. No overnight events reported to me. Patient denies any chest pain, shortness breath, nausea/vomiting or severe headaches. Imaging, nursing note, chart, labs and old chart reviewed. Discussed with patient. Hospitalist Physical - Physical exam Narrative exam: Gen: thin, WDWN, NAD, Awake, Alert, Orientated HEENT: NCAT, EOMI, PERRL, OP Clear Neck: supple, no thyromegaly, no JVD CVS/Heart: RRR, normal S1S2, pulses present bilaterally Chest/Lungs: bilateral crackles and coarse bs bilaterally, Symmetrical chest expansion, good air entry bilaterally GI/Abdomen: soft, NTND, good bowel sounds, no guarding or rebound /Bladder: no suprapubic tenderness, no CVA or paraspinal tenderness Extermity/Skin: no c/c/e, no obvious rash MSK: FROM x 4 Neuro: CN 2-12 grossly intact, no new focal deficits Psych: calm - Constitutional Vitals: Temp Pulse Resp BP Pulse Ox 98.7 F 82 20 100/61 96 09/23/18 06:12 09/23/18 06:12 09/23/18 06:12 09/23/18 06:12 09/23/18 06:12 Results - Labs CBC & Chem 7: 09/20/18 15:45 09/20/18 15:45 Labs: Laboratory Last Values WBC 5.0 K/mm3 (4.5-11.0) 09/20/18 15:45 RBC 4.35 M/mm3 (3.65-5.03) 09/20/18 15:45 Hgb 11.1 gm/dl (11.8-15.2) L 09/20/18 15:45 Hct 32.8 % (35.5-45.6) L 09/20/18 15:45 MCV 75 fl (84-94) L 09/20/18 15:45 MCH 26 pg (28-32) L 09/20/18 15:45 MCHC 34 % (32-34) 09/20/18 15:45 RDW 14.4 % (13.2-15.2) 09/20/18 15:45 Plt Count 158 K/mm3 (140-440) 09/20/18 15:45 Lymph % (Auto) 3.6 % (13.4-35.0) L 09/18/18 10:35 [place] % (Auto) 11.3 % (0.0-7.3) H 09/18/18 10:35 Eos % (Auto) 3.5 % (0.0-4.3) 09/18/18 10:35 Baso % (Auto) 0.1 % (0.0-1.8) 09/18/18 10:35 Lymph # 0.3 K/mm3 (1.2-5.4) L 09/18/18 10:35 [place] # 0.9 K/mm3 (0.0-0.8) H 09/18/18 10:35 Eos # 0.3 K/mm3 (0.0-0.4) 09/18/18 10:35 Baso # 0.0 K/mm3 (0.0-0.1) 09/18/18 10:35 Add Manual Diff Complete 09/19/18 Unknown Total Counted 100 09/19/18 Unknown Seg Neutrophils % Senior Marketing Coordinator 09/19/18 Unknown Seg Neuts % (Manual) 92.0 % (40.0-70.0) H 09/19/18 Unknown 5.0 % 09/19/18 Unknown 0 % (13.4-35.0) L 09/19/18 Unknown Reactive Lymphs % (Man) 0 % 09/19/18 Unknown 3.0 % (0.0-7.3) 09/19/18 Unknown 0 % (0.0-4.3) 09/19/18 Unknown 0 % (0.0-1.8) 09/19/18 Unknown 0 % 09/19/18 Unknown 0 % 09/19/18 Unknown 0 % 09/19/18 Unknown 0 % 09/19/18 Unknown Nucleated RBC % Not Reportable 09/19/18 Unknown Seg Neutrophils # 6.4 K/mm3 (1.8-7.7) 09/18/18 10:35 Seg Neutrophils # Man 6.1 K/mm3 (1.8-7.7) 09/19/18 Unknown Band Neutrophils # 0.3 K/mm3 09/19/18 Unknown 0.0 K/mm3 (1.2-5.4) L 09/19/18 Unknown Abs React Lymphs (Man) 0.0 K/mm3 09/19/18 Unknown 0.2 K/mm3 (0.0-0.8) 09/19/18 Unknown 0.0 K/mm3 (0.0-0.4) 09/19/18 Unknown 0.0 K/mm3 (0.0-0.1) 09/19/18 Unknown 0.0 K/mm3 09/19/18 Unknown 0.0 K/mm3 09/19/18 Unknown 0.0 K/mm3 09/19/18 Unknown Blast Cells # 0.0 K/mm3 09/19/18 Unknown WBC Morphology Not Reportable 09/19/18 Unknown Hypersegmented Neuts Not Reportable 09/19/18 Unknown Hyposegmented Neuts Not Reportable 09/19/18 Unknown Hypogranular Neuts Not Reportable 09/19/18 Unknown Not Reportable 09/19/18 Unknown Not Reportable 09/19/18 Unknown Not Reportable 09/19/18 Unknown Not Reportable 09/19/18 Unknown Not Reportable 09/19/18 Unknown Not Reportable 09/19/18 Unknown Consistent w auto 09/19/18 Unknown Not Reportable 09/19/18 Unknown Plt Clumps, EDTA Not Reportable 09/19/18 Unknown Not Reportable 09/19/18 Unknown Rare 09/19/18 Unknown Not Reportable 09/19/18 Unknown Plt Morphology Comment Not Reportable 09/19/18 Unknown RBC Morphology Not Reportable 09/19/18 Unknown Dimorphic RBCs Not Reportable 09/19/18 Unknown Not Reportable 09/19/18 Unknown Not Reportable 09/19/18 Unknown Not Reportable 09/19/18 Unknown Not Reportable 09/19/18 Unknown Not Reportable 09/19/18 Unknown Not Reportable 09/19/18 Unknown Not Reportable 09/19/18 Unknown Not Reportable 09/19/18 Unknown Not Reportable 09/19/18 Unknown Not Reportable 09/19/18 Unknown Not Reportable 09/19/18 Unknown Few 09/19/18 Unknown Not Reportable 09/19/18 Unknown Not Reportable 09/19/18 Unknown Not Reportable 09/19/18 Unknown Not Reportable 09/19/18 Unknown Not Reportable 09/19/18 Unknown Not Reportable 09/19/18 Unknown Not Reportable 09/19/18 Unknown Acanthocytes (Spur) Not Reportable 09/19/18 Unknown Rouleaux Not Reportable 09/19/18 Unknown Not Reportable 09/19/18 Unknown Not Reportable 09/19/18 Unknown Not Reportable 09/19/18 Unknown Not Reportable 09/19/18 Unknown Hem Pathologist Commnt No 09/19/18 Unknown PT 12.8 Sec. (12.2-14.9) 09/18/18 10:35 INR 0.91 (0.87-1.13) 09/18/18 10:35 APTT 29.8 Sec. (24.2-36.6) 09/18/18 10:35 326.74 ng/mlDDU (0-234) H 09/18/18 10:35 VBG pH 7.363 (7.320-7.420) 09/18/18 10:35 Sodium 130 mmol/L (137-145) L 09/20/18 15:45 Potassium 3.5 mmol/L (3.6-5.0) L 09/20/18 15:45 Chloride 103.5 mmol/L (98-107) 09/20/18 15:45 Carbon Dioxide 16 mmol/L (22-30) L 09/20/18 15:45 14 mmol/L 09/20/18 15:45 BUN 12 mg/dL (9-20) 09/20/18 15:45 1.2 mg/dL (0.8-1.5) 09/20/18 15:45 Estimated GFR > 60 ml/min 09/20/18 15:45 10 % 09/20/18 15:45 Glucose 118 mg/dL (75-100) H 09/20/18 15:45 5.7 % (4-6) 09/18/18 20:01 Lactic Acid 1.10 mmol/L (0.7-2.0) 09/18/18 15:20 Calcium 7.9 mg/dL (8.4-10.2) L 09/20/18 15:45 0.20 mg/dL (0.1-1.2) 09/20/18 15:45 AST 30 units/L (5-40) 09/20/18 15:45 ALT 23 units/L (7-56) 09/20/18 15:45 75 units/L (35-129) 09/20/18 15:45 211 units/L (91-180) H 09/19/18 Unknown < 0.010 ng/mL (0.00-0.029) 09/18/18 10:35 6.3 g/dL (6.3-8.2) 09/20/18 15:45 2.4 g/dL (3.9-5) L 09/20/18 15:45 0.6 % 09/20/18 15:45 TSH 0.711 mlU/mL (0.270-4.200) 09/18/18 10:35 Yellow (Yellow) 09/18/18 14:55 Clear (Clear) 09/18/18 14:55 5.0 (5.0-7.0) 09/18/18 14:55 Ur Specific [place] 1.025 (1.003-1.030) 09/18/18 14:55 30 mg/dl mg/dL (Negative) 09/18/18 14:55 Neg mg/dL (Negative) 09/18/18 14:55 Neg mg/dL (Negative) 09/18/18 14:55 Neg (Negative) 09/18/18 14:55 Neg (Negative) 09/18/18 14:55 Neg (Negative) 09/18/18 14:55 < 2.0 mg/dL (<2.0) 09/18/18 14:55 Ur Leukocyte Esterase Neg (Negative) 09/18/18 14:55 8.0 /HPF (0.0-6.0) H 09/18/18 14:55 1.0 /HPF (0.0-6.0) 09/18/18 14:55 U Epithel Cells (Auto) < 1.0 /HPF (0-13.0) 09/18/18 14:55 Few /HPF 09/18/18 14:55 Hepatitis A IgM Ab Non-reactive (NonReactive) 09/19/18 Unknown Hep Bs Antigen Non-reactive (Negative) 09/19/18 Unknown Hep B Core IgM Ab Non-reactive (NonReactive) 09/19/18 Unknown Non-reactive (NonReactive) 09/19/18 Unknown HIV 1&2 Antibody Rapid Reactive (Non React) 09/18/18 20:01 Non react (Non React) 09/18/18 20:01 09/19/18 Unknown Active Medications - Current Medications Current Medications: Generic Name Dose Route Start Last Admin Trade Name Freq PRN Reason Stop Dose Admin Acetaminophen 650 mg 09/18/18 18:19 09/22/18 13:10 Tylenol PO 650 mg Q4H PRN Administration Pain MILD(1-3)/Fever >100.5/LANDAVERDE Albuterol/Ipratropium 1 ampul 09/18/18 21:00 Duoneb *Not For Prn Use* IH Q3H PRN Wheezing Famotidine 20 mg 09/18/18 22:00 09/22/18 22:06 Pepcid PO 20 mg BID LEIGH Administration Guaifenesin 10 ml 09/19/18 01:51 09/23/18 08:17 Guaifenesin Dm Syrup PO 10 ml Q4H PRN Administration Cough Hydromorphone HCl 0.5 mg 09/18/18 18:19 09/22/18 23:17 Dilaudid IV 0.5 mg Q3H PRN Administration Pain , Severe (7-10) Ceftriaxone Sodium 2 gm in 100 mls @ 200 mls/hr 09/18/18 19:00 09/22/18 09:01 Rocephin/Ns 2 Gm/100 Ml IV 200 mls/hr Q24HR LEIGH Administration Protocol Trimethoprim/Sulfamethoxazole 521.875 mls @ 350 mls/hr 09/20/18 02:00 09/23/18 02:05 350 mg/ Dextrose IV 350 mls/hr Q8H LEIGH Administration Protocol Sodium Chloride 1,000 mls @ 100 mls/hr 09/20/18 09:00 09/23/18 07:40 Nacl 0.9% 1000 Ml IV 100 mls/hr DIRECT LEIGH Administration Metoclopramide HCl 10 mg 09/18/18 18:19 09/22/18 23:17 Reglan IV 10 mg Q6H PRN Administration Nausea And Vomiting Ondansetron HCl 4 mg 09/18/18 18:19 Zofran IV Q8H PRN Nausea And Vomiting Sodium Chloride 10 ml 09/18/18 22:00 09/22/18 22:06 Sodium Chloride Flush Syringe 10 Ml IV 10 ml BID LEIGH Administration Sodium Chloride 10 ml 09/18/18 18:19 Sodium Chloride Flush Syringe 10 Ml IV PRN PRN LINE FLUSH Temazepam 15 mg 09/20/18 22:46 09/20/18 23:30 Restoril PO 15 mg QHS PRN Administration Sleep
[2018-09-23] MEDS: PEPCID PO SCH ×2 (10:15→22:09)
[2018-09-23] MEDS: ROCEPHIN/NS 2 GM/100 ML 2 GM/100 ML BAG IV SCH (10:16)
[2018-09-23] MEDS: SODIUM CHLORIDE FLUSH SYRINGE 10 ML IV SCH ×2 (10:22→22:10)
[2018-09-23 10:42] LABS: Hematocrit 34.4 % (35.5-45.6); Hemoglobin 11.6 gm/dl (11.8-15.2); Mean Corpuscular HGB Conc 34 % (32-34); Mean Corpuscular Volume 75 fl (84-94); Platelet Count 202 K/mm3 (140-440); Red Blood Count 4.59 M/mm3 (3.65-5.03); Red Cell Distribution Width 14.4 % (13.2-15.2)
[2018-09-23 10:55] LABS: BUN/Creatinine Ratio 8; Blood Urea Nitrogen 8 mg/dL (9-20); Calcium 8.3 mg/dL (8.4-10.2); Hemolysis Index 7
[2018-09-24] MEDS: BACTRIM 350 MG in D5W 500 ML IV SCH ×3 (02:11→18:58)
[2018-09-24] MEDS: NACL 0.9% 1000 ML 1,000 ML IV SCH ×2 (02:33→19:04)
--- NOTE | 2018-09-24 08:05 | Progress Note ---
Assessment and Plan Assessment and plan: Patient is 38 yo man originally from [facility], [place] with a history of HIV who presented with sob, fevers and cough. 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 Hyponatremia, dehydration: iv fluids given, monitor closely Hypokalemia: replete and monitor closely Mild transaminitis: hepatitis panel noted Hypotension: gave stat bolus of NSS and started maintenance fluids DVT ppx reviewed, held a/c due to low plt due to HIV most likely Noncompliance with getting labs: I Counseled extensively on non-adherence to medical therapies, He finally agreed Labs pending: Quantifereon TB Gold/AFB culture/AFB smear/Lymphocyte subset/Sputum for PJP and HIV-1 RNA pending C.diffe ordered but not collected due to protocol Day 7abx AFB stain negative x 2 Disposition: continue inpatient care, d/c once Tb ruled out. History Interval history: Patient was seen and examined. Follow-up on current diagnosis of Bilateral PNA. No overnight events reported to me. Patient denies any chest pain, shortness breath, nausea/vomiting or severe headaches. Imaging, nursing note, chart, labs and old chart reviewed. Discussed with patient. Hospitalist Physical - Physical exam Narrative exam: Gen: thin, WDWN, NAD, Awake, Alert, Orientated HEENT: NCAT, EOMI, PERRL, OP Clear Neck: supple, no thyromegaly, no JVD CVS/Heart: RRR, normal S1S2, pulses present bilaterally Chest/Lungs: bilateral crackles and coarse bs bilaterally, Symmetrical chest expansion, good air entry bilaterally GI/Abdomen: soft, NTND, good bowel sounds, no guarding or rebound /Bladder: no suprapubic tenderness, no CVA or paraspinal tenderness Extermity/Skin: no c/c/e, no obvious rash MSK: FROM x 4 Neuro: CN 2-12 grossly intact, no new focal deficits Psych: calm - Constitutional Vitals: Temp Pulse Resp BP Pulse Ox 98.4 F 87 16 110/70 99 09/24/18 05:04 09/23/18 18:02 09/24/18 05:04 09/24/18 05:04 09/23/18 18:02 Results - Labs CBC & Chem 7: 09/23/18 09:51 09/23/18 09:51 Labs: Laboratory Last Values WBC 3.3 K/mm3 (4.5-11.0) L 09/23/18 09:51 RBC 4.59 M/mm3 (3.65-5.03) 09/23/18 09:51 Hgb 11.6 gm/dl (11.8-15.2) L 09/23/18 09:51 Hct 34.4 % (35.5-45.6) L 09/23/18 09:51 MCV 75 fl (84-94) L 09/23/18 09:51 MCH 25 pg (28-32) L 09/23/18 09:51 MCHC 34 % (32-34) 09/23/18 09:51 RDW 14.4 % (13.2-15.2) 09/23/18 09:51 Plt Count 202 K/mm3 (140-440) 09/23/18 09:51 Lymph % (Auto) 3.6 % (13.4-35.0) L 09/18/18 10:35 [place] % (Auto) 11.3 % (0.0-7.3) H 09/18/18 10:35 Eos % (Auto) 3.5 % (0.0-4.3) 09/18/18 10:35 Baso % (Auto) 0.1 % (0.0-1.8) 09/18/18 10:35 Lymph # 0.3 K/mm3 (1.2-5.4) L 09/18/18 10:35 [place] # 0.9 K/mm3 (0.0-0.8) H 09/18/18 10:35 Eos # 0.3 K/mm3 (0.0-0.4) 09/18/18 10:35 Baso # 0.0 K/mm3 (0.0-0.1) 09/18/18 10:35 Add Manual Diff Complete 09/19/18 Unknown Total Counted 100 09/19/18 Unknown Seg Neutrophils % Director Sales 09/19/18 Unknown Seg Neuts % (Manual) 92.0 % (40.0-70.0) H 09/19/18 Unknown 5.0 % 09/19/18 Unknown 0 % (13.4-35.0) L 09/19/18 Unknown Reactive Lymphs % (Man) 0 % 09/19/18 Unknown 3.0 % (0.0-7.3) 09/19/18 Unknown 0 % (0.0-4.3) 09/19/18 Unknown 0 % (0.0-1.8) 09/19/18 Unknown 0 % 09/19/18 Unknown 0 % 09/19/18 Unknown 0 % 09/19/18 Unknown 0 % 09/19/18 Unknown Nucleated RBC % Not Reportable 09/19/18 Unknown Seg Neutrophils # 6.4 K/mm3 (1.8-7.7) 09/18/18 10:35 Seg Neutrophils # Man 6.1 K/mm3 (1.8-7.7) 09/19/18 Unknown Band Neutrophils # 0.3 K/mm3 09/19/18 Unknown 0.0 K/mm3 (1.2-5.4) L 09/19/18 Unknown Abs React Lymphs (Man) 0.0 K/mm3 09/19/18 Unknown 0.2 K/mm3 (0.0-0.8) 09/19/18 Unknown 0.0 K/mm3 (0.0-0.4) 09/19/18 Unknown 0.0 K/mm3 (0.0-0.1) 09/19/18 Unknown 0.0 K/mm3 09/19/18 Unknown 0.0 K/mm3 09/19/18 Unknown 0.0 K/mm3 09/19/18 Unknown Blast Cells # 0.0 K/mm3 09/19/18 Unknown WBC Morphology Not Reportable 09/19/18 Unknown Hypersegmented Neuts Not Reportable 09/19/18 Unknown Hyposegmented Neuts Not Reportable 09/19/18 Unknown Hypogranular Neuts Not Reportable 09/19/18 Unknown Not Reportable 09/19/18 Unknown Not Reportable 09/19/18 Unknown Not Reportable 09/19/18 Unknown Not Reportable 09/19/18 Unknown Not Reportable 09/19/18 Unknown Not Reportable 09/19/18 Unknown Consistent w auto 09/19/18 Unknown Not Reportable 09/19/18 Unknown Plt Clumps, EDTA Not Reportable 09/19/18 Unknown Not Reportable 09/19/18 Unknown Rare 09/19/18 Unknown Not Reportable 09/19/18 Unknown Plt Morphology Comment Not Reportable 09/19/18 Unknown RBC Morphology Not Reportable 09/19/18 Unknown Dimorphic RBCs Not Reportable 09/19/18 Unknown Not Reportable 09/19/18 Unknown Not Reportable 09/19/18 Unknown Not Reportable 09/19/18 Unknown Not Reportable 09/19/18 Unknown Not Reportable 09/19/18 Unknown Not Reportable 09/19/18 Unknown Not Reportable 09/19/18 Unknown Not Reportable 09/19/18 Unknown Not Reportable 09/19/18 Unknown Not Reportable 09/19/18 Unknown Not Reportable 09/19/18 Unknown Few 09/19/18 Unknown Not Reportable 09/19/18 Unknown Not Reportable 09/19/18 Unknown Not Reportable 09/19/18 Unknown Not Reportable 09/19/18 Unknown Not Reportable 09/19/18 Unknown Not Reportable 09/19/18 Unknown Not Reportable 09/19/18 Unknown Acanthocytes (Spur) Not Reportable 09/19/18 Unknown Rouleaux Not Reportable 09/19/18 Unknown Not Reportable 09/19/18 Unknown Not Reportable 09/19/18 Unknown Not Reportable 09/19/18 Unknown Not Reportable 09/19/18 Unknown Hem Pathologist Commnt No 09/19/18 Unknown PT 12.8 Sec. (12.2-14.9) 09/18/18 10:35 INR 0.91 (0.87-1.13) 09/18/18 10:35 APTT 29.8 Sec. (24.2-36.6) 09/18/18 10:35 326.74 ng/mlDDU (0-234) H 09/18/18 10:35 VBG pH 7.363 (7.320-7.420) 09/18/18 10:35 Sodium 133 mmol/L (137-145) L 09/23/18 09:51 Potassium 4.8 mmol/L (3.6-5.0) D 09/23/18 09:51 Chloride 99.0 mmol/L (98-107) 09/23/18 09:51 Carbon Dioxide 20 mmol/L (22-30) L 09/23/18 09:51 19 mmol/L 09/23/18 09:51 BUN 8 mg/dL (9-20) L 09/23/18 09:51 1.0 mg/dL (0.8-1.5) 09/23/18 09:51 Estimated GFR > 60 ml/min 09/23/18 09:51 8 % 09/23/18 09:51 Glucose 93 mg/dL (75-100) 09/23/18 09:51 5.7 % (4-6) 09/18/18 20:01 Lactic Acid 1.10 mmol/L (0.7-2.0) 09/18/18 15:20 Calcium 8.3 mg/dL (8.4-10.2) L 09/23/18 09:51 0.20 mg/dL (0.1-1.2) 09/20/18 15:45 AST 30 units/L (5-40) 09/20/18 15:45 ALT 23 units/L (7-56) 09/20/18 15:45 75 units/L (35-129) 09/20/18 15:45 211 units/L (91-180) H 09/19/18 Unknown < 0.010 ng/mL (0.00-0.029) 09/18/18 10:35 6.3 g/dL (6.3-8.2) 09/20/18 15:45 2.4 g/dL (3.9-5) L 09/20/18 15:45 0.6 % 09/20/18 15:45 TSH 0.711 mlU/mL (0.270-4.200) 09/18/18 10:35 Yellow (Yellow) 09/18/18 14:55 Clear (Clear) 09/18/18 14:55 5.0 (5.0-7.0) 09/18/18 14:55 Ur Specific [place] 1.025 (1.003-1.030) 09/18/18 14:55 30 mg/dl mg/dL (Negative) 09/18/18 14:55 Neg mg/dL (Negative) 09/18/18 14:55 Neg mg/dL (Negative) 09/18/18 14:55 Neg (Negative) 09/18/18 14:55 Neg (Negative) 09/18/18 14:55 Neg (Negative) 09/18/18 14:55 < 2.0 mg/dL (<2.0) 09/18/18 14:55 Ur Leukocyte Esterase Neg (Negative) 09/18/18 14:55 8.0 /HPF (0.0-6.0) H 09/18/18 14:55 1.0 /HPF (0.0-6.0) 09/18/18 14:55 U Epithel Cells (Auto) < 1.0 /HPF (0-13.0) 09/18/18 14:55 Few /HPF 09/18/18 14:55 Hepatitis A IgM Ab Non-reactive (NonReactive) 09/19/18 Unknown Hep Bs Antigen Non-reactive (Negative) 09/19/18 Unknown Hep B Core IgM Ab Non-reactive (NonReactive) 09/19/18 Unknown Non-reactive (NonReactive) 09/19/18 Unknown HIV 1&2 Antibody Rapid Reactive (Non React) 09/18/18 20:01 Non react (Non React) 09/18/18 20:01 09/19/18 Unknown Active Medications - Current Medications Current Medications: Generic Name Dose Route Start Last Admin Trade Name Freq PRN Reason Stop Dose Admin Acetaminophen 650 mg 09/18/18 18:19 09/22/18 13:10 Tylenol PO 650 mg Q4H PRN Administration Pain MILD(1-3)/Fever >100.5/LANDAVERDE Albuterol/Ipratropium 1 ampul 09/18/18 21:00 Duoneb *Not For Prn Use* IH Q3H PRN Wheezing Famotidine 20 mg 09/18/18 22:00 09/23/18 22:09 Pepcid PO 20 mg BID LEIGH Administration Guaifenesin 10 ml 09/19/18 01:51 09/23/18 08:17 Guaifenesin Dm Syrup PO 10 ml Q4H PRN Administration Cough Hydromorphone HCl 0.5 mg 09/18/18 18:19 09/22/18 23:17 Dilaudid IV 0.5 mg Q3H PRN Administration Pain , Severe (7-10) Ceftriaxone Sodium 2 gm in 100 mls @ 200 mls/hr 09/18/18 19:00 09/23/18 10:16 Rocephin/Ns 2 Gm/100 Ml IV 200 mls/hr Q24HR LEIGH Administration Protocol Trimethoprim/Sulfamethoxazole 521.875 mls @ 350 mls/hr 09/20/18 02:00 09/24/18 02:11 350 mg/ Dextrose IV 350 mls/hr Q8H LEIGH Administration Protocol Sodium Chloride 1,000 mls @ 100 mls/hr 09/20/18 09:00 09/24/18 02:33 Nacl 0.9% 1000 Ml IV 100 mls/hr DIRECT LEIGH Administration Metoclopramide HCl 10 mg 09/18/18 18:19 09/22/18 23:17 Reglan IV 10 mg Q6H PRN Administration Nausea And Vomiting Ondansetron HCl 4 mg 09/18/18 18:19 09/23/18 11:15 Zofran IV 4 mg Q8H PRN Administration Nausea And Vomiting Sodium Chloride 10 ml 09/18/18 22:00 09/23/18 22:10 Sodium Chloride Flush Syringe 10 Ml IV 10 ml BID LEIGH Administration Sodium Chloride 10 ml 09/18/18 18:19 Sodium Chloride Flush Syringe 10 Ml IV PRN PRN LINE FLUSH Temazepam 15 mg 09/20/18 22:46 09/20/18 23:30 Restoril PO 15 mg QHS PRN Administration Sleep
--- NOTE | 2018-09-24 09:22 | Progress Note ---
Assessment and Plan Cultures: 09/18/2018 blood culture: No growth 09/18/2018 urine culture: No growth 09/19/2018 sputum culture: Contaminated with saliva x 2 09/19/2018 cryptococcal antigen: negative 09/19/2018 AFB stain X 2 negative A/P: 38-year-old male originally from [place], diagnosed with HIV in 2016, risk factor is heterosexual contact. Admitted with 2 week history of fever and cough: 1) Sepsis, likely secondary to bilateral pneumonia: Resolved. No fever in >48 hours. In the setting of HIV, patient originally from [facility]. On CT imaging, there is a little bit of miliary type pattern in the lung bases. Agree with airborne isolation, need to rule out community-acquired pneumonia versus TB versus PCP pneumonia. Hepatitis series nonreactive. 2) HIV, likely AIDS: Noncompliant with medications. Labs suggestive of absolute lymphopenia. Recs: Discontinue ceftriaxone 2 gms IV every 24 hours continue Empiric IV Bactrim Airborne isolation Follow-up AFB sputum's and smear 1 Follow-up HIV viral load, CD4 lymphocyte count Follow-up [facility] M: [phone] O:[phone] Subjective Date of service: 09/24/18 Interval history: Patient seen and examined. Awake. states that he is feeling a little better today. No fevers, Objective - Exam Narrative Exam: Constitutional: Asleep. Easy to arouse. No acute distress Head, Ears, Nose: Normocephalic, atraumatic. External ears, nose normal Eyes: + icterus improving. no conjunctivitis or drainage Neck: Supple, no meningeal signs Oral: dentition fair, no thrush Cardiovascular: S1, S2 normal. Respiratory: bilateral basal crackles GI: Soft, non-tender; bowel sounds normal. No peritoneal signs Musculoskeletal: No pedal edema, no cyanosis. Skin: No rash or abscess Hem/Lymphatic: No palpable cervical or supraclavicular nodes. No lymphangitis Psych:calm, not agitated Neurological: Asleep. easy to arouse. oriented - Constitutional Vitals: Vital Signs Temp Pulse Resp BP Pulse Ox 98.4 F 87 16 110/70 99 09/24/18 05:04 09/23/18 18:02 09/24/18 05:04 09/24/18 05:04 09/23/18 18:02 Temperature -Last 24 Hours Temperature 98.4 F Temperature 98.8 F Temperature 98.2 F Temperature 98.0 F - Labs CBC & Chem 7: 09/23/18 09:51 09/23/18 09:51 Labs: Abnormal lab results 09/23/18 09/23/18 Range/Units 09:51 09:51 WBC 3.3 L (4.5-11.0) K/mm3 Hgb 11.6 L (11.8-15.2) gm/dl Hct 34.4 L (35.5-45.6) % MCV 75 L (84-94) fl MCH 25 L (28-32) pg Sodium 133 L (137-145) mmol/L Carbon Dioxide 20 L (22-30) mmol/L BUN 8 L (9-20) mg/dL Calcium 8.3 L (8.4-10.2) mg/dL
[2018-09-24] MEDS: ROCEPHIN/NS 2 GM/100 ML 2 GM/100 ML BAG IV SCH (09:32)
[2018-09-24] MEDS: PEPCID PO SCH ×2 (09:33→21:38)
[2018-09-24] MEDS: SODIUM CHLORIDE FLUSH SYRINGE 10 ML IV SCH ×2 (09:33→21:38)
[2018-09-24 20:52] LABS: HIV-1 RNA QN PCR 6.01 Log cps/mL
[2018-09-24 20:53] LABS: CD4/CD8 Ratio 0.03 (0.86-5.00)
[2018-09-25] MEDS: BACTRIM 350 MG in D5W 500 ML IV SCH ×2 (02:27→09:34)
--- NOTE | 2018-09-25 09:19 | Progress Note ---
Assessment and Plan Assessment and plan: Patient is 38 yo man originally from [facility], [place] with a history of HIV who presented with sob, fevers and cough. 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 Hyponatremia, dehydration: iv fluids given, monitor closely Hypokalemia: replete and monitor closely Mild transaminitis: hepatitis panel noted Hypotension: gave stat bolus of NSS and started maintenance fluids DVT ppx reviewed, held a/c due to low plt due to HIV most likely Noncompliance with getting labs: I Counseled extensively on non-adherence to medical therapies, He finally agreed Labs pending: Quantifereon TB Gold/AFB culture/AFB smear/ C.diffe ordered but not collected due to protocol Day 8 abx, defer to ID AFB stain negative x 2, but AFB culture pending PJP negative Viral load over 1M CD 4 count 2 Disposition: continue inpatient care, d/c once Tb ruled out. History Interval history: Patient was seen and examined. Follow-up on current diagnosis of Bilateral PNA. No overnight events reported to me. Patient denies any chest pain, shortness breath, nausea/vomiting or severe headaches. Imaging, nursing note, chart, labs and old chart reviewed. Discussed with patient. Hospitalist Physical - Physical exam Narrative exam: Gen: thin, WDWN, NAD, Awake, Alert, Orientated HEENT: NCAT, EOMI, PERRL, OP Clear Neck: supple, no thyromegaly, no JVD CVS/Heart: RRR, normal S1S2, pulses present bilaterally Chest/Lungs: bilateral crackles and coarse bs bilaterally, Symmetrical chest expansion, good air entry bilaterally GI/Abdomen: soft, NTND, good bowel sounds, no guarding or rebound /Bladder: no suprapubic tenderness, no CVA or paraspinal tenderness Extermity/Skin: no c/c/e, no obvious rash MSK: FROM x 4 Neuro: CN 2-12 grossly intact, no new focal deficits Psych: calm - Constitutional Vitals: Temp Pulse Resp BP Pulse Ox 99.2 F 70 17 97/60 92 09/25/18 05:04 09/25/18 05:00 09/25/18 05:04 09/25/18 05:04 09/25/18 05:00 Results - Labs CBC & Chem 7: 09/23/18 09:51 09/23/18 09:51 Labs: Laboratory Last Values WBC 3.3 K/mm3 (4.5-11.0) L 09/23/18 09:51 RBC 4.59 M/mm3 (3.65-5.03) 09/23/18 09:51 Hgb 11.6 gm/dl (11.8-15.2) L 09/23/18 09:51 Hct 34.4 % (35.5-45.6) L 09/23/18 09:51 MCV 75 fl (84-94) L 09/23/18 09:51 MCH 25 pg (28-32) L 09/23/18 09:51 MCHC 34 % (32-34) 09/23/18 09:51 RDW 14.4 % (13.2-15.2) 09/23/18 09:51 Plt Count 202 K/mm3 (140-440) 09/23/18 09:51 Lymph % (Auto) 3.6 % (13.4-35.0) L 09/18/18 10:35 [place] % (Auto) 11.3 % (0.0-7.3) H 09/18/18 10:35 Eos % (Auto) 3.5 % (0.0-4.3) 09/18/18 10:35 Baso % (Auto) 0.1 % (0.0-1.8) 09/18/18 10:35 Lymph # 0.3 K/mm3 (1.2-5.4) L 09/18/18 10:35 [place] # 0.9 K/mm3 (0.0-0.8) H 09/18/18 10:35 Eos # 0.3 K/mm3 (0.0-0.4) 09/18/18 10:35 Baso # 0.0 K/mm3 (0.0-0.1) 09/18/18 10:35 Add Manual Diff Complete 09/19/18 Unknown Total Counted 100 09/19/18 Unknown Seg Neutrophils % Tire Balancer 09/19/18 Unknown Seg Neuts % (Manual) 92.0 % (40.0-70.0) H 09/19/18 Unknown 5.0 % 09/19/18 Unknown 0 % (13.4-35.0) L 09/19/18 Unknown Reactive Lymphs % (Man) 0 % 09/19/18 Unknown 3.0 % (0.0-7.3) 09/19/18 Unknown 0 % (0.0-4.3) 09/19/18 Unknown 0 % (0.0-1.8) 09/19/18 Unknown 0 % 09/19/18 Unknown 0 % 09/19/18 Unknown 0 % 09/19/18 Unknown 0 % 09/19/18 Unknown Nucleated RBC % Not Reportable 09/19/18 Unknown Seg Neutrophils # 6.4 K/mm3 (1.8-7.7) 09/18/18 10:35 Seg Neutrophils # Man 6.1 K/mm3 (1.8-7.7) 09/19/18 Unknown Band Neutrophils # 0.3 K/mm3 09/19/18 Unknown Abs Lymphs (Manual) 126 cells/uL (850-3900) L 09/19/18 Unknown 0.0 K/mm3 (1.2-5.4) L 09/19/18 Unknown Abs React Lymphs (Man) 0.0 K/mm3 09/19/18 Unknown 0.2 K/mm3 (0.0-0.8) 09/19/18 Unknown 0.0 K/mm3 (0.0-0.4) 09/19/18 Unknown 0.0 K/mm3 (0.0-0.1) 09/19/18 Unknown 0.0 K/mm3 09/19/18 Unknown 0.0 K/mm3 09/19/18 Unknown 0.0 K/mm3 09/19/18 Unknown Blast Cells # 0.0 K/mm3 09/19/18 Unknown WBC Morphology Not Reportable 09/19/18 Unknown Hypersegmented Neuts Not Reportable 09/19/18 Unknown Hyposegmented Neuts Not Reportable 09/19/18 Unknown Hypogranular Neuts Not Reportable 09/19/18 Unknown Not Reportable 09/19/18 Unknown Not Reportable 09/19/18 Unknown Not Reportable 09/19/18 Unknown Not Reportable 09/19/18 Unknown Not Reportable 09/19/18 Unknown Not Reportable 09/19/18 Unknown Consistent w auto 09/19/18 Unknown Not Reportable 09/19/18 Unknown Plt Clumps, EDTA Not Reportable 09/19/18 Unknown Not Reportable 09/19/18 Unknown Rare 09/19/18 Unknown Not Reportable 09/19/18 Unknown Plt Morphology Comment Not Reportable 09/19/18 Unknown RBC Morphology Not Reportable 09/19/18 Unknown Dimorphic RBCs Not Reportable 09/19/18 Unknown Not Reportable 09/19/18 Unknown Not Reportable 09/19/18 Unknown Not Reportable 09/19/18 Unknown Not Reportable 09/19/18 Unknown Not Reportable 09/19/18 Unknown Not Reportable 09/19/18 Unknown Not Reportable 09/19/18 Unknown Not Reportable 09/19/18 Unknown Not Reportable 09/19/18 Unknown Not Reportable 09/19/18 Unknown Not Reportable 09/19/18 Unknown Few 09/19/18 Unknown Not Reportable 09/19/18 Unknown Not Reportable 09/19/18 Unknown Not Reportable 09/19/18 Unknown Not Reportable 09/19/18 Unknown Not Reportable 09/19/18 Unknown Not Reportable 09/19/18 Unknown Not Reportable 09/19/18 Unknown Acanthocytes (Spur) Not Reportable 09/19/18 Unknown Rouleaux Not Reportable 09/19/18 Unknown Not Reportable 09/19/18 Unknown Not Reportable 09/19/18 Unknown Not Reportable 09/19/18 Unknown Not Reportable 09/19/18 Unknown Hem Pathologist Commnt No 09/19/18 Unknown PT 12.8 Sec. (12.2-14.9) 09/18/18 10:35 INR 0.91 (0.87-1.13) 09/18/18 10:35 APTT 29.8 Sec. (24.2-36.6) 09/18/18 10:35 326.74 ng/mlDDU (0-234) H 09/18/18 10:35 VBG pH 7.363 (7.320-7.420) 09/18/18 10:35 Sodium 133 mmol/L (137-145) L 09/23/18 09:51 Potassium 4.8 mmol/L (3.6-5.0) D 09/23/18 09:51 Chloride 99.0 mmol/L (98-107) 09/23/18 09:51 Carbon Dioxide 20 mmol/L (22-30) L 09/23/18 09:51 19 mmol/L 09/23/18 09:51 BUN 8 mg/dL (9-20) L 09/23/18 09:51 1.0 mg/dL (0.8-1.5) 09/23/18 09:51 Estimated GFR > 60 ml/min 09/23/18 09:51 8 % 09/23/18 09:51 Glucose 93 mg/dL (75-100) 09/23/18 09:51 5.7 % (4-6) 09/18/18 20:01 Lactic Acid 1.10 mmol/L (0.7-2.0) 09/18/18 15:20 Calcium 8.3 mg/dL (8.4-10.2) L 09/23/18 09:51 0.20 mg/dL (0.1-1.2) 09/20/18 15:45 AST 30 units/L (5-40) 09/20/18 15:45 ALT 23 units/L (7-56) 09/20/18 15:45 75 units/L (35-129) 09/20/18 15:45 211 units/L (91-180) H 09/19/18 Unknown < 0.010 ng/mL (0.00-0.029) 09/18/18 10:35 6.3 g/dL (6.3-8.2) 09/20/18 15:45 2.4 g/dL (3.9-5) L 09/20/18 15:45 0.6 % 09/20/18 15:45 TSH 0.711 mlU/mL (0.270-4.200) 09/18/18 10:35 Yellow (Yellow) 09/18/18 14:55 Clear (Clear) 09/18/18 14:55 5.0 (5.0-7.0) 09/18/18 14:55 Ur Specific [place] 1.025 (1.003-1.030) 09/18/18 14:55 30 mg/dl mg/dL (Negative) 09/18/18 14:55 Neg mg/dL (Negative) 09/18/18 14:55 Neg mg/dL (Negative) 09/18/18 14:55 Neg (Negative) 09/18/18 14:55 Neg (Negative) 09/18/18 14:55 Neg (Negative) 09/18/18 14:55 < 2.0 mg/dL (<2.0) 09/18/18 14:55 Ur Leukocyte Esterase Neg (Negative) 09/18/18 14:55 8.0 /HPF (0.0-6.0) H 09/18/18 14:55 1.0 /HPF (0.0-6.0) 09/18/18 14:55 U Epithel Cells (Auto) < 1.0 /HPF (0-13.0) 09/18/18 14:55 Few /HPF 09/18/18 14:55 Lymph Enumerat CD4/CD8 0.03 (0.86-5.00) L 09/19/18 Unknown % CD3 Cells 68 % (57-85) 09/19/18 Unknown 86 cells/uL (840-3060) L 09/19/18 Unknown % CD4 Cells 2 % (30-61) L 09/19/18 Unknown 2 cells/uL (490-1740) L 09/19/18 Unknown % CD8 Cells 60 % (12-42) H 09/19/18 Unknown 72 cells/uL (180-1170) L 09/19/18 Unknown % CD19 Cells 17 % (6-29) 09/19/18 Unknown 23 cells/uL (110-660) L 09/19/18 Unknown Hepatitis A IgM Ab Non-reactive (NonReactive) 09/19/18 Unknown Hep Bs Antigen Non-reactive (Negative) 09/19/18 Unknown Hep B Core IgM Ab Non-reactive (NonReactive) 09/19/18 Unknown Non-reactive (NonReactive) 09/19/18 Unknown HIV-1 RNA PCR copies/ml [id number] Copies/mL H 09/18/18 20:01 6.01 Log cps/mL H 09/18/18 20:01 HIV 1&2 Antibody Rapid Reactive (Non React) 09/18/18 20:01 Non react (Non React) 09/18/18 20:01 09/19/18 Unknown see below 09/19/18 10:00 Active Medications - Current Medications Current Medications: Generic Name Dose Route Start Last Admin Trade Name Freq PRN Reason Stop Dose Admin Acetaminophen 650 mg 09/18/18 18:19 09/22/18 13:10 Tylenol PO 650 mg Q4H PRN Administration Pain MILD(1-3)/Fever >100.5/LANDAVERDE Albuterol/Ipratropium 1 ampul 09/18/18 21:00 Duoneb *Not For Prn Use* IH Q3H PRN Wheezing Famotidine 20 mg 09/18/18 22:00 09/24/18 21:38 Pepcid PO 20 mg BID LEIGH Administration Guaifenesin 10 ml 09/19/18 01:51 09/23/18 08:17 Guaifenesin Dm Syrup PO 10 ml Q4H PRN Administration Cough Hydromorphone HCl 0.5 mg 09/18/18 18:19 09/22/18 23:17 Dilaudid IV 0.5 mg Q3H PRN Administration Pain , Severe (7-10) Ceftriaxone Sodium 2 gm in 100 mls @ 200 mls/hr 09/18/18 19:00 09/24/18 09:32 Rocephin/Ns 2 Gm/100 Ml IV 200 mls/hr Q24HR LEIGH Administration Protocol Trimethoprim/Sulfamethoxazole 521.875 mls @ 350 mls/hr 09/20/18 02:00 09/25/18 02:27 350 mg/ Dextrose IV 350 mls/hr Q8H LEIGH Administration Protocol Sodium Chloride 1,000 mls @ 100 mls/hr 09/20/18 09:00 09/24/18 19:04 Nacl 0.9% 1000 Ml IV 100 mls/hr DIRECT LEIGH Administration Metoclopramide HCl 10 mg 09/18/18 18:19 09/22/18 23:17 Reglan IV 10 mg Q6H PRN Administration Nausea And Vomiting Ondansetron HCl 4 mg 09/18/18 18:19 09/23/18 11:15 Zofran IV 4 mg Q8H PRN Administration Nausea And Vomiting Sodium Chloride 10 ml 09/18/18 22:00 09/24/18 21:38 Sodium Chloride Flush Syringe 10 Ml IV 10 ml BID LEIGH Administration Sodium Chloride 10 ml 09/18/18 18:19 Sodium Chloride Flush Syringe 10 Ml IV PRN PRN LINE FLUSH Temazepam 15 mg 09/20/18 22:46 09/20/18 23:30 Restoril PO 15 mg QHS PRN Administration Sleep Nutrition/Malnutrition Assess - Dietary Evaluation Nutrition/Malnutrition Findings: Nutrition Notes Start: 09/24/18 17:03 Freq: Status: Active Protocol: Document 09/24/18 17:03 OH (Rec: 09/24/18 17:09 OH [id number]) Nutrition Notes Need for Assessment generated from: Low BMI Initial or Follow up Brief Note Other Pertinent Diagnosis HIV Current Diet REGULAR Height 5 ft 9 in Weight 73 kg [place] Body Weight (kg) 72.72 BMI 23.8 Intake Prior to Admission Fair Weight Status Appropriate Subjective/Other Information Consulted due to low BMI. Pt. BMI 23, appropriate for wt/ht. Pt. sitting up in bed. Pt. requests alternatives for breakfast. Per MD report pt stopped taking HIV meds from [place] due to no SS#. Pt. disputes wt loss as recorded in chart. Pt. open to receiving Boost to increase alb/PRO/KCALS. Percent of energy/protein needs met: 50/50% Burn Absent Trauma Absent GI Symptoms None Current % PO Fair (50-74%) Protein-Calorie Malnutrition Severe #1 Nutrition Diagnosis Inadequate oral intake Etiology food dislikes As Evidenced by Signs and Symptoms <75% po intake of kcal/PRO Is patient on ventilator? No Is Patient Ambulatory and/or Out of Bed Yes REE-([facility]-ambulatory/OOB) [ 2125.994 NUTR.MSJOOB] Kcal/Kg value to use for calculation 30 Approximate Energy Requirements Using 2190 kcal/Kg Additional Notes 1 ml/fluid/kcal 1-1.3 g/kg/PRO/IBW Nutrition Intervention Change Diet Order: Cont regular diet Add Supplement/Snack (indicate name/kcal Ensure bid /protein ) Provides kCal: 700 Provides Protein (gm) 40 Goal #1 po intake to exceed 75% kcals/ PRO Goal #2 Initiate ONS bid Follow-Up By: 09/26/18 Additional Comments f/u for po intake; tolerance to ONS
[2018-09-25] MEDS: PEPCID PO SCH ×2 (09:30→22:00)
[2018-09-25] MEDS: NACL 0.9% 1000 ML 1,000 ML IV SCH (09:30)
[2018-09-25] MEDS: ROCEPHIN/NS 2 GM/100 ML 2 GM/100 ML BAG IV SCH (09:30)
--- NOTE | 2018-09-25 10:02 | Progress Note ---
Assessment and Plan Cultures: 09/18/2018 blood culture: No growth 09/18/2018 urine culture: No growth 09/19/2018 sputum culture: Contaminated with saliva x 2 09/19/2018 cryptococcal antigen: negative 09/19/2018 AFB stain X 2 negative 09/19/2018 PJP: negative A/P: 38-year-old male originally from [place], diagnosed with HIV in 2016, risk factor is heterosexual contact. Admitted with 2 week history of fever and cough: 1) Sepsis, likely secondary to bilateral pneumonia: Resolved. No fever . In the setting of HIV, patient originally from [facility], [place]. On CT imaging, there is a little bit of miliary type pattern in the lung bases. Agree with airborne isolation, need to rule out community-acquired pneumonia versus TB versus PCP pneumonia. Hepatitis series nonreactive. 2) HIV, likely AIDS: Noncompliant with medications. Labs suggestive of absolute lymphopenia. CD4=2/VL>1 Mil. PJP negative. Recs: switch to Bactrim DS 1 PO daily Airborne isolation Follow-up AFB sputum's and smear 1 Discussion with CM regarding referral to [facility] for ART therapy [facility] M: [phone] O:[phone] Subjective Date of service: 09/25/18 Interval history: Patient seen and examined. Awake. Reports no generalized pain or weakness. No fevers, Objective - Exam Narrative Exam: Constitutional: Asleep. Easy to arouse. No acute distress Head, Ears, Nose: Normocephalic, atraumatic. External ears, nose normal Eyes: + icterus improving. no conjunctivitis or drainage Neck: Supple, no meningeal signs Oral: dentition fair, no thrush Cardiovascular: S1, S2 normal. Respiratory: bilateral basal crackles GI: Soft, non-tender; bowel sounds normal. No peritoneal signs Musculoskeletal: No pedal edema, no cyanosis. Skin: No rash or abscess Hem/Lymphatic: No palpable cervical or supraclavicular nodes. No lymphangitis Psych:calm, not agitated Neurological: Asleep. easy to arouse. oriented - Constitutional Vitals: Vital Signs Temp Pulse Resp BP Pulse Ox 99.2 F 70 17 97/60 92 09/25/18 05:04 09/25/18 05:00 09/25/18 05:04 09/25/18 05:04 09/25/18 05:00 Temperature -Last 24 Hours Temperature 99.2 F Temperature 97.9 F Temperature 97.8 F Temperature 98.1 F - Labs CBC & Chem 7: 09/23/18 09:51 09/23/18 09:51 Labs: Abnormal lab results 09/18/18 09/19/18 Range/Units 20:01 Unknown Abs Lymphs (Manual) 126 L (850-3900) cells/uL Lymph Enumerat CD4/CD8 0.03 L (0.86-5.00) Absolute CD3 Count 86 L (840-3060) cells/uL % CD4 Cells 2 L (30-61) % Absolute CD4 Count 2 L (490-1740) cells/uL % CD8 Cells 60 H (12-42) % Absolute CD8 Count 72 L (180-1170) cells/uL Absolute CD19 Count 23 L (110-660) cells/uL HIV-1 RNA PCR copies/ml [id number] H Copies/mL HIV-1 RNA (PCR) log 6.01 H Log cps/mL
[2018-09-25] MEDS: BACTRIM DS PO SCH (16:37)
[2018-09-25] MEDS: SODIUM CHLORIDE FLUSH SYRINGE 10 ML IV SCH (22:00)
[2018-09-26] MEDS: NACL 0.9% 1000 ML 1,000 ML IV SCH ×3 (04:49→21:57)
[2018-09-26] MEDS: BACTRIM DS PO SCH (09:44)
[2018-09-26] MEDS: PEPCID PO SCH ×2 (09:44→21:57)
--- NOTE | 2018-09-26 09:44 | Progress Note ---
Assessment and Plan Cultures: 09/18/2018 blood culture: No growth 09/18/2018 urine culture: No growth 09/19/2018 sputum culture: Contaminated with saliva x 2 09/19/2018 cryptococcal antigen: negative 09/19/2018 AFB stain X 2 negative 09/19/2018 PJP: negative A/P: 38-year-old male originally from [place], diagnosed with HIV in 2016, risk factor is heterosexual contact. Admitted with 2 week history of fever and cough: 1) Sepsis, likely secondary to bilateral pneumonia: Resolved. No fever . In the setting of HIV, patient originally from [facility]. On CT imaging, there is a little bit of miliary type pattern in the lung bases. Agree with airborne isolation, need to rule out community-acquired pneumonia versus TB versus PCP pneumonia. Hepatitis series nonreactive. 2) HIV, likely AIDS: Noncompliant with medications. Labs suggestive of absolute lymphopenia. CD4=2/VL>1 Mil. PJP negative. Recs: Continue Bactrim DS 1 PO daily Airborne isolation Follow-up AFB sputum's and smear 1 Discussion with CM regarding referral to [facility] for ART therapy [facility] M: [phone] O:[phone] Subjective Date of service: 09/26/18 Interval history: Patient seen and examined. Awake. Reports no generalized pain or weakness. No fevers, Objective - Exam Narrative Exam: Constitutional: Awake. alert. No acute distress Head, Ears, Nose: Normocephalic, atraumatic. External ears, nose normal Eyes: + icterus improving. no conjunctivitis or drainage Neck: Supple, no meningeal signs Oral: dentition fair, no thrush Cardiovascular: S1, S2 normal. Respiratory: bilateral basal crackles GI: Soft, non-tender; bowel sounds normal. No peritoneal signs Musculoskeletal: No pedal edema, no cyanosis. Skin: No rash or abscess Hem/Lymphatic: No palpable cervical or supraclavicular nodes. No lymphangitis Psych:calm, not agitated Neurological: Awake. Alert. oriented - Constitutional Vitals: Vital Signs Temp Pulse Resp BP Pulse Ox 98.6 F 72 16 108/70 93 09/26/18 06:03 09/26/18 06:05 09/26/18 06:03 09/26/18 06:03 09/26/18 00:15 Temperature -Last 24 Hours Temperature 98.6 F Temperature 98.8 F Temperature 97.5 F Temperature 97.4 F - Labs CBC & Chem 7: 09/23/18 09:51 09/23/18 09:51
[2018-09-26] MEDS: SODIUM CHLORIDE FLUSH SYRINGE 10 ML IV SCH ×3 (09:45→21:57)
--- NOTE | 2018-09-26 13:52 | Progress Note ---
Assessment and Plan - Patient Problems (1) HIV (human immunodeficiency virus infection) Current Visit: Yes Status: Acute Qualifiers: HIV symptom status: unspecified Qualified Code(s): B20 - Human immunodeficiency virus [HIV] disease Plan to address problem: Patient with AIDS CD4 count of 2 HIV RNA greater than 1 million. BM followed by infectious disease. Will most likely require further antiviral evaluation upon discharge with ID. (2) Pneumonia Current Visit: Yes Status: Acute Qualifiers: Pneumonia type: due to unspecified organism Laterality: bilateral Lung location: unspecified part of lung Qualified Code(s): J18.9 - Pneumonia, unspecified organism Plan to address problem: At this point most likely community-acquired pneumonia bilateral pneumonia. P JVP negative. AFB cultures pending. Has had 2 negatives and last one pending. We'll discharge when last they have B results completed. (3) Sepsis Current Visit: Yes Status: Acute Qualifiers: Sepsis type: sepsis due to unspecified organism Qualified Code(s): A41.9 - Sepsis, unspecified organism Plan to address problem: No longer septic. Patient remains afebrile. White count within normal limits. Clinically improving with antibiotics albuterol nebulizers and O2. History Interval history: Patient actually improving. Clinically doing better. States he is coughing less. Stronger. Has produced the third AFB but has not been read yet. Not been finalized. Hospitalist Physical - Constitutional Vitals: Temp Pulse Resp BP Pulse Ox 98.3 F 81 18 101/60 97 09/26/18 11:33 09/26/18 11:33 09/26/18 11:33 09/26/18 11:33 09/26/18 11:33 General appearance: Present: no acute distress - EENT Eyes: Present: PERRL, EOM intact, scleral icterus, conjunctival injection. Absent: exopthalmos, miosis, mydriasis, discharge ENT: hearing intact, clear oral mucosa, dentition normal, no oropharyngeal erythema, no poor dentition, no thrush - Neck Neck: Present: supple, normal ROM - Respiratory Respiratory effort: normal Respiratory: bilateral: diminished, rhonchi (bilaterally especially anteriorly) - Cardiovascular Rhythm: regular - Extremities Extremities: no ischemia, pulses intact, pulses symmetrical, No edema, normal temperature, normal color, Full ROM - Abdominal General gastrointestinal: soft, non-tender, non-distended, normal bowel sounds, no hepatomegaly, no splenomegaly, no mass - Integumentary Integumentary: Present: clear, warm, dry - Psychiatric Psychiatric: appropriate mood/affect, intact judgment & insight - Neurologic Neurologic: CNII-XII intact, no focal deficits, moves all extremities, gait normal Results - Labs CBC & Chem 7: 09/23/18 09:51 09/23/18 09:51 Labs: Laboratory Last Values WBC 3.3 K/mm3 (4.5-11.0) L 09/23/18 09:51 RBC 4.59 M/mm3 (3.65-5.03) 09/23/18 09:51 Hgb 11.6 gm/dl (11.8-15.2) L 09/23/18 09:51 Hct 34.4 % (35.5-45.6) L 09/23/18 09:51 MCV 75 fl (84-94) L 09/23/18 09:51 MCH 25 pg (28-32) L 09/23/18 09:51 MCHC 34 % (32-34) 09/23/18 09:51 RDW 14.4 % (13.2-15.2) 09/23/18 09:51 Plt Count 202 K/mm3 (140-440) 09/23/18 09:51 Lymph % (Auto) 3.6 % (13.4-35.0) L 09/18/18 10:35 [place] % (Auto) 11.3 % (0.0-7.3) H 09/18/18 10:35 Eos % (Auto) 3.5 % (0.0-4.3) 09/18/18 10:35 Baso % (Auto) 0.1 % (0.0-1.8) 09/18/18 10:35 Lymph # 0.3 K/mm3 (1.2-5.4) L 09/18/18 10:35 [place] # 0.9 K/mm3 (0.0-0.8) H 09/18/18 10:35 Eos # 0.3 K/mm3 (0.0-0.4) 09/18/18 10:35 Baso # 0.0 K/mm3 (0.0-0.1) 09/18/18 10:35 Add Manual Diff Complete 09/19/18 Unknown Total Counted 100 09/19/18 Unknown Seg Neutrophils % Loss Prevention Representative 09/19/18 Unknown Seg Neuts % (Manual) 92.0 % (40.0-70.0) H 09/19/18 Unknown 5.0 % 09/19/18 Unknown 0 % (13.4-35.0) L 09/19/18 Unknown Reactive Lymphs % (Man) 0 % 09/19/18 Unknown 3.0 % (0.0-7.3) 09/19/18 Unknown 0 % (0.0-4.3) 09/19/18 Unknown 0 % (0.0-1.8) 09/19/18 Unknown 0 % 09/19/18 Unknown 0 % 09/19/18 Unknown 0 % 09/19/18 Unknown 0 % 09/19/18 Unknown Nucleated RBC % Not Reportable 09/19/18 Unknown Seg Neutrophils # 6.4 K/mm3 (1.8-7.7) 09/18/18 10:35 Seg Neutrophils # Man 6.1 K/mm3 (1.8-7.7) 09/19/18 Unknown Band Neutrophils # 0.3 K/mm3 09/19/18 Unknown Abs Lymphs (Manual) 126 cells/uL (850-3900) L 09/19/18 Unknown 0.0 K/mm3 (1.2-5.4) L 09/19/18 Unknown Abs React Lymphs (Man) 0.0 K/mm3 09/19/18 Unknown 0.2 K/mm3 (0.0-0.8) 09/19/18 Unknown 0.0 K/mm3 (0.0-0.4) 09/19/18 Unknown 0.0 K/mm3 (0.0-0.1) 09/19/18 Unknown 0.0 K/mm3 09/19/18 Unknown 0.0 K/mm3 09/19/18 Unknown 0.0 K/mm3 09/19/18 Unknown Blast Cells # 0.0 K/mm3 09/19/18 Unknown WBC Morphology Not Reportable 09/19/18 Unknown Hypersegmented Neuts Not Reportable 09/19/18 Unknown Hyposegmented Neuts Not Reportable 09/19/18 Unknown Hypogranular Neuts Not Reportable 09/19/18 Unknown Not Reportable 09/19/18 Unknown Not Reportable 09/19/18 Unknown Not Reportable 09/19/18 Unknown Not Reportable 09/19/18 Unknown Not Reportable 09/19/18 Unknown Not Reportable 09/19/18 Unknown Consistent w auto 09/19/18 Unknown Not Reportable 09/19/18 Unknown Plt Clumps, EDTA Not Reportable 09/19/18 Unknown Not Reportable 09/19/18 Unknown Rare 09/19/18 Unknown Not Reportable 09/19/18 Unknown Plt Morphology Comment Not Reportable 09/19/18 Unknown RBC Morphology Not Reportable 09/19/18 Unknown Dimorphic RBCs Not Reportable 09/19/18 Unknown Not Reportable 09/19/18 Unknown Not Reportable 09/19/18 Unknown Not Reportable 09/19/18 Unknown Not Reportable 09/19/18 Unknown Not Reportable 09/19/18 Unknown Not Reportable 09/19/18 Unknown Not Reportable 09/19/18 Unknown Not Reportable 09/19/18 Unknown Not Reportable 09/19/18 Unknown Not Reportable 09/19/18 Unknown Not Reportable 09/19/18 Unknown Few 09/19/18 Unknown Not Reportable 09/19/18 Unknown Not Reportable 09/19/18 Unknown Not Reportable 09/19/18 Unknown Not Reportable 09/19/18 Unknown Not Reportable 09/19/18 Unknown Not Reportable 09/19/18 Unknown Not Reportable 09/19/18 Unknown Acanthocytes (Spur) Not Reportable 09/19/18 Unknown Rouleaux Not Reportable 09/19/18 Unknown Not Reportable 09/19/18 Unknown Not Reportable 09/19/18 Unknown Not Reportable 09/19/18 Unknown Not Reportable 09/19/18 Unknown Hem Pathologist Commnt No 09/19/18 Unknown PT 12.8 Sec. (12.2-14.9) 09/18/18 10:35 INR 0.91 (0.87-1.13) 09/18/18 10:35 APTT 29.8 Sec. (24.2-36.6) 09/18/18 10:35 326.74 ng/mlDDU (0-234) H 09/18/18 10:35 VBG pH 7.363 (7.320-7.420) 09/18/18 10:35 Sodium 133 mmol/L (137-145) L 09/23/18 09:51 Potassium 4.8 mmol/L (3.6-5.0) D 09/23/18 09:51 Chloride 99.0 mmol/L (98-107) 09/23/18 09:51 Carbon Dioxide 20 mmol/L (22-30) L 09/23/18 09:51 19 mmol/L 09/23/18 09:51 BUN 8 mg/dL (9-20) L 09/23/18 09:51 1.0 mg/dL (0.8-1.5) 09/23/18 09:51 Estimated GFR > 60 ml/min 09/23/18 09:51 8 % 09/23/18 09:51 Glucose 93 mg/dL (75-100) 09/23/18 09:51 5.7 % (4-6) 09/18/18 20:01 Lactic Acid 1.10 mmol/L (0.7-2.0) 09/18/18 15:20 Calcium 8.3 mg/dL (8.4-10.2) L 09/23/18 09:51 0.20 mg/dL (0.1-1.2) 09/20/18 15:45 AST 30 units/L (5-40) 09/20/18 15:45 ALT 23 units/L (7-56) 09/20/18 15:45 75 units/L (35-129) 09/20/18 15:45 211 units/L (91-180) H 09/19/18 Unknown < 0.010 ng/mL (0.00-0.029) 09/18/18 10:35 6.3 g/dL (6.3-8.2) 09/20/18 15:45 2.4 g/dL (3.9-5) L 09/20/18 15:45 0.6 % 09/20/18 15:45 TSH 0.711 mlU/mL (0.270-4.200) 09/18/18 10:35 Yellow (Yellow) 09/18/18 14:55 Clear (Clear) 09/18/18 14:55 5.0 (5.0-7.0) 09/18/18 14:55 Ur Specific [place] 1.025 (1.003-1.030) 09/18/18 14:55 30 mg/dl mg/dL (Negative) 09/18/18 14:55 Neg mg/dL (Negative) 09/18/18 14:55 Neg mg/dL (Negative) 09/18/18 14:55 Neg (Negative) 09/18/18 14:55 Neg (Negative) 09/18/18 14:55 Neg (Negative) 09/18/18 14:55 < 2.0 mg/dL (<2.0) 09/18/18 14:55 Ur Leukocyte Esterase Neg (Negative) 09/18/18 14:55 8.0 /HPF (0.0-6.0) H 09/18/18 14:55 1.0 /HPF (0.0-6.0) 09/18/18 14:55 U Epithel Cells (Auto) < 1.0 /HPF (0-13.0) 09/18/18 14:55 Few /HPF 09/18/18 14:55 Lymph Enumerat CD4/CD8 0.03 (0.86-5.00) L 09/19/18 Unknown % CD3 Cells 68 % (57-85) 09/19/18 Unknown 86 cells/uL (840-3060) L 09/19/18 Unknown % CD4 Cells 2 % (30-61) L 09/19/18 Unknown 2 cells/uL (490-1740) L 09/19/18 Unknown % CD8 Cells 60 % (12-42) H 09/19/18 Unknown 72 cells/uL (180-1170) L 09/19/18 Unknown % CD19 Cells 17 % (6-29) 09/19/18 Unknown 23 cells/uL (110-660) L 09/19/18 Unknown Hepatitis A IgM Ab Non-reactive (NonReactive) 09/19/18 Unknown Hep Bs Antigen Non-reactive (Negative) 09/19/18 Unknown Hep B Core IgM Ab Non-reactive (NonReactive) 09/19/18 Unknown Non-reactive (NonReactive) 09/19/18 Unknown HIV-1 RNA PCR copies/ml [id number] Copies/mL H 09/18/18 20:01 6.01 Log cps/mL H 09/18/18 20:01 HIV 1&2 Antibody Rapid Reactive (Non React) 09/18/18 20:01 Non react (Non React) 09/18/18 20:01 09/19/18 Unknown see below 09/19/18 10:00 Active Medications - Current Medications Current Medications: Generic Name Dose Route Start Last Admin Trade Name Heidi PRN Reason Stop Dose Admin Acetaminophen 650 mg 09/18/18 18:19 09/22/18 13:10 Tylenol PO 650 mg Q4H PRN Administration Pain MILD(1-3)/Fever >100.5/LANDAVERDE Albuterol/Ipratropium 1 ampul 09/18/18 21:00 Duoneb *Not For Prn Use* IH Q3H PRN Wheezing Famotidine 20 mg 09/18/18 22:00 09/26/18 09:44 Pepcid PO 20 mg BID LEIGH Administration Guaifenesin 10 ml 09/19/18 01:51 09/23/18 08:17 Guaifenesin Dm Syrup PO 10 ml Q4H PRN Administration Cough Hydromorphone HCl 0.5 mg 09/18/18 18:19 09/22/18 23:17 Dilaudid IV 0.5 mg Q3H PRN Administration Pain , Severe (7-10) Sodium Chloride 1,000 mls @ 100 mls/hr 09/20/18 09:00 09/26/18 07:31 Nacl 0.9% 1000 Ml IV 100 mls/hr DIRECT LEIGH Administration Metoclopramide HCl 10 mg 09/18/18 18:19 09/22/18 23:17 Reglan IV 10 mg Q6H PRN Administration Nausea And Vomiting Ondansetron HCl 4 mg 09/18/18 18:19 09/23/18 11:15 Zofran IV 4 mg Q8H PRN Administration Nausea And Vomiting Sodium Chloride 10 ml 09/18/18 22:00 09/26/18 09:45 Sodium Chloride Flush Syringe 10 Ml IV 10 ml BID LEIGH Administration Sodium Chloride 10 ml 09/18/18 18:19 Sodium Chloride Flush Syringe 10 Ml IV PRN PRN LINE FLUSH Temazepam 15 mg 09/20/18 22:46 09/20/18 23:30 Restoril PO 15 mg QHS PRN Administration Sleep Trimethoprim/Sulfamethoxazole 1 each 09/25/18 14:00 09/26/18 09:44 Bactrim Ds PO 1 each DAILY LEIGH Administration Nutrition/Malnutrition Assess - Dietary Evaluation Nutrition/Malnutrition Findings: Nutrition Notes Start: 09/24/18 17:03 Freq: Status: Active Protocol: Document 09/24/18 17:03 [place] (Rec: 09/24/18 17:09 [facility]-[id number]) Nutrition Notes Need for Assessment generated from: Low BMI Initial or Follow up Brief Note Other Pertinent Diagnosis HIV Current Diet REGULAR Height 5 ft 9 in Weight 73 kg [place] Body Weight (kg) 72.72 BMI 23.8 Intake Prior to Admission Fair Weight Status Appropriate Subjective/Other Information Consulted due to low BMI. Pt. BMI 23, appropriate for wt/ht. Pt. sitting up in bed. Pt. requests alternatives for breakfast. Per MD report pt stopped taking HIV meds from [place] due to no SS#. Pt. disputes wt loss as recorded in chart. Pt. open to receiving Boost to increase alb/PRO/KCALS. Percent of energy/protein needs met: 50/50% Burn Absent Trauma Absent GI Symptoms None Current % PO Fair (50-74%) Protein-Calorie Malnutrition Severe #1 Nutrition Diagnosis Inadequate oral intake Etiology food dislikes As Evidenced by Signs and Symptoms <75% po intake of kcal/PRO Is patient on ventilator? No Is Patient Ambulatory and/or Out of Bed Yes REE-([place]-St. Jeor-ambulatory/OOB) [ 2125.994 NUTR.MSJOOB] Kcal/Kg value to use for calculation 30 Approximate Energy Requirements Using 2190 kcal/Kg Additional Notes 1 ml/fluid/kcal 1-1.3 g/kg/PRO/IBW Nutrition Intervention Change Diet Order: Cont regular diet Add Supplement/Snack (indicate name/kcal Ensure bid /protein ) Provides kCal: 700 Provides Protein (gm) 40 Goal #1 po intake to exceed 75% kcals/ PRO Goal #2 Initiate ONS bid Follow-Up By: 09/26/18 Additional Comments f/u for po intake; tolerance to ONS
--- NOTE | 2018-09-27 08:55 | Progress Note ---
Assessment and Plan Cultures: 09/18/2018 blood culture: No growth 09/18/2018 urine culture: No growth 09/19/2018 sputum culture: Contaminated with saliva x 2 09/19/2018 cryptococcal antigen: negative 09/19/2018 AFB stain X 3 negative 09/19/2018 PJP: negative A/P: 38-year-old male originally from [place], diagnosed with HIV in 2016, risk factor is heterosexual contact. Admitted with 2 week history of fever and cough: 1) Sepsis, likely secondary to bilateral pneumonia: Resolved. No fever . In the setting of HIV, patient originally from [facility]. On CT imaging, there is a little bit of miliary type pattern in the lung bases. AFB smear negarive x 3. Discontinue airbourne precautions. 2) HIV, likely AIDS: Noncompliant with medications. Labs suggestive of absolute lymphopenia. CD4=2/VL>1 Mil. PJP negative. Recs: Continue Bactrim DS 1 PO daily Discontinue airbourne precautions Ok to discharge from ID standpoint. Continue Bactrim DS 1 PO daily- 30 day prescription on the chart Discussion with CM regarding referral to [facility] for ART therapy Netta Olsno NP [facility] M: [phone] O:[phone] Subjective Date of service: 09/27/18 Interval history: Patient seen and examined. Awake. Reports no generalized pain or weakness. No fevers,. Discussed importance of taking PO Bactrim daily and following-up with HIV clinic. Verbalized understanding. Objective - Exam Narrative Exam: Constitutional: Awake. alert. No acute distress Head, Ears, Nose: Normocephalic, atraumatic. External ears, nose normal Eyes: + icterus improving. no conjunctivitis or drainage Neck: Supple, no meningeal signs Oral: dentition fair, no thrush Cardiovascular: S1, S2 normal. Respiratory: bilateral basal crackles GI: Soft, non-tender; bowel sounds normal. No peritoneal signs Musculoskeletal: No pedal edema, no cyanosis. Skin: No rash or abscess Hem/Lymphatic: No palpable cervical or supraclavicular nodes. No lymphangitis Psych:calm, not agitated Neurological: Awake. Alert. oriented - Constitutional Vitals: Vital Signs Temp Pulse Resp BP Pulse Ox 98.7 F 87 16 114/76 99 09/27/18 05:05 09/27/18 05:05 09/27/18 05:05 09/27/18 05:05 09/27/18 05:05 Temperature -Last 24 Hours Temperature 98.7 F Temperature 99.1 F Temperature 98.6 F Temperature 98.3 F - Labs CBC & Chem 7: 09/23/18 09:51 09/23/18 09:51
[2018-09-27] MEDS: BACTRIM DS PO SCH (09:31)
[2018-09-27] MEDS: PEPCID PO SCH (09:31)
[2018-09-27] MEDS: SODIUM CHLORIDE FLUSH SYRINGE 10 ML IV SCH (09:32)
[2018-09-27 11:57] VITALS: BP 102/69
--- NOTE | 2018-09-27 15:04 | Discharge Summary ---
Providers - Providers Date of Admission: 09/18/18 14:32 Date of discharge: 09/27/18 Attending physician: LUKE GRACE 09/18/18 18:19 Consult to Physician [CONS] Routine Comment: Consulting Provider: CYRUS LYNN Physician Instructions: Reason For Exam: bilateral pneumonia/HIV [facility] Reason for admission: fever Condition: Stable Pertinent studies: CT head no acute lesions CTA chest negative for PE bilateral infiltrates Hospital course: 38-year-old male originally from [place], diagnosed with HIV in 2016, risk factor is heterosexual contact. Admitted with 2 week history of fever and cough: ID consult was obtained. Patient was treated for suspected pneumonia with 5 days of IV ceftriaxone and azithromycin Sputum for AFB 3 was negative She will be discharged on Bactrim DS 1 tablet daily Follow-up the [place] [facility] for anti-retroviral therapy Is medically stable for discharge Cultures: 09/18/2018 blood culture: No growth 09/18/2018 urine culture: No growth 09/19/2018 sputum culture: Contaminated with saliva x 2 09/19/2018 cryptococcal antigen: negative 09/19/2018 AFB stain X 3 negative 09/19/2018 PJP: negative Disposition: DC-01 TO HOME OR SELFCARE Time spent for discharge: 40 min Core Measure Documentation - Palliative Care Palliative Care/ Comfort Measures: Not Applicable - Core Measures Any of the following diagnoses?: none Exam - Constitutional Vitals: Temp Pulse Resp BP Pulse Ox 97.7 F 94 H 18 102/69 98 09/27/18 11:34 09/27/18 11:34 09/27/18 11:34 09/27/18 11:34 09/27/18 11:34 General appearance: Present: no acute distress, cachectic - EENT Eyes: Present: PERRL, EOM intact ENT: hearing intact, clear oral mucosa - Neck Neck: Present: supple, normal ROM - Respiratory Respiratory effort: normal Respiratory: bilateral: CTA, diminished - Cardiovascular Rhythm: regular Heart Sounds: Present: S1 & S2 - Extremities Extremities: No edema - Abdominal General gastrointestinal: Present: soft, non-tender. Absent: hepatomegaly, splenomegaly Male genitourinary: Present: deferred - Rectal Rectal Exam: deferred - Integumentary Integumentary: Present: clear - Musculoskeletal Musculoskeletal: strength equal bilaterally - Psychiatric Psychiatric: appropriate mood/affect - Neurologic Neurologic: CNII-XII intact, no focal deficits Plan Activity: advance as tolerated Weight Bearing Status: Full Weight Bearing Diet: regular Additional Instructions: [facility]-up with [facility] RAFA[facility] [Primary Care Provider] - 3-5 Days Prescriptions: Sulfamethoxazole/Trimethoprim [Bactrim DS TAB] 1 each PO DAILY #30 tablet
== END 2018-09-27 17:35 | disposition home or self-care (01) | DRG 975 ==
LOC: ED 10:21 → 3A 14:32
PROVIDERS: ADMIT Internal Medicine; ATTEND Internal Medicine
PROC: 3E0234Z Introduction of Serum, Toxoid and Vaccine into Muscle, Percutaneous Approach (ICD-10-PCS; principal; 2018-09-19)
DX: B20 Human immunodeficiency virus [HIV] disease (principal); A41.9 Sepsis, unspecified organism; E87.1 Hypo-osmolality and hyponatremia; J18.9 Pneumonia, unspecified organism; E44.1 Mild protein-calorie malnutrition; F17.210 Nicotine dependence, cigarettes, uncomplicated; Z68.21 Body mass index [BMI] 21.0-21.9, adult; E86.0 Dehydration; E87.6 Hypokalemia; Z23 Encounter for immunization
CPT/HCPCS: 36415; 70450; 71045; 71275; 80048; 80053; 80074; 81001; 82024; 82140; 82164; 82805; 83036; 83615; 84443; 84484; 85007; 85025; 85027; 85379; 85610; 85730; 86403; 87040; 87086; 87116; 87205; 87536; 87806; 88112; 88312; 90686; 90732; 93005; 93010; 96365; 96375; G0378; J0456; J0696; J1170; J1650; J1885; J1956; J2405; J2765; J7030; J7040; J7050; J7060; Q9967